=== PATIENT | male | born 1940 | race Caucasian/White ===

== ENCOUNTER → 2018-05-01 | Outpatient (CLI) | payer OTHER, MEDICARE ==
[~2018-05-01] MED LIST: ADVAIR HFA115 MCG/21 INH; ASPIR 8181 MG PO; COLACE100 MG PO; COUMADIN 5 MG TA5 M1 PO; COUMADIN7.5 MG PO; DEMADEX20 MG PO; FISH OIL 1,001000 M2 PO; K-TAB ER20 MEQ PO; LIPITOR10 MG PO; LOPRESSOR25 PO; PACERONE 200 M200 M1 PO; TYLENOL325 MG PO; UNICOMPLEX M TA1 TA1 PO; VITAMIN D1000 UNI1 PO
[2018-05-01 09:43] LABS: CREATININE 0.9 mg/dL (0.7-1.3)
== END ==
LOC: LABMALL 08:58
PROVIDERS: Internal Medicine Cardiovascular Disease
DX: I71.4 Abdominal aortic aneurysm, without rupture (principal)

== ENCOUNTER → 2018-09-04 | Outpatient (CLI) | payer OTHER, MEDICARE | LOC: HYPER 06:59 | DX: I87.312 Chronic venous hypertension (idiopathic) with ulcer of left lower extremity (principal); L97.821 Non-pressure chronic ulcer of other part of left lower leg limited to breakdown of skin; E78.00 Pure hypercholesterolemia, unspecified; G47.33 Obstructive sleep apnea (adult) (pediatric); I10 Essential (primary) hypertension; I71.4 Abdominal aortic aneurysm, without rupture; J44.9 Chronic obstructive pulmonary disease, unspecified; M19.90 Unspecified osteoarthritis, unspecified site; F17.200 Nicotine dependence, unspecified, uncomplicated ==

== ENCOUNTER → 2018-09-18 | Outpatient (CLI) | payer OTHER, MEDICARE | LOC: HYPER 07:03 | DX: I87.312 Chronic venous hypertension (idiopathic) with ulcer of left lower extremity (principal); L97.821 Non-pressure chronic ulcer of other part of left lower leg limited to breakdown of skin; E78.00 Pure hypercholesterolemia, unspecified; G47.33 Obstructive sleep apnea (adult) (pediatric); I10 Essential (primary) hypertension; I71.4 Abdominal aortic aneurysm, without rupture; J44.9 Chronic obstructive pulmonary disease, unspecified; M19.90 Unspecified osteoarthritis, unspecified site; F17.200 Nicotine dependence, unspecified, uncomplicated ==

== ENCOUNTER → 2019-08-04 | Outpatient (CLI) | payer OTHER, MEDICARE | LOC: HYPER 06:45 | DX: I87.333 Chronic venous hypertension (idiopathic) with ulcer and inflammation of bilateral lower extremity (principal); L97.811 Non-pressure chronic ulcer of other part of right lower leg limited to breakdown of skin; L97.821 Non-pressure chronic ulcer of other part of left lower leg limited to breakdown of skin; I71.4 Abdominal aortic aneurysm, without rupture; E78.00 Pure hypercholesterolemia, unspecified; M19.90 Unspecified osteoarthritis, unspecified site; E55.9 Vitamin D deficiency, unspecified; G47.30 Sleep apnea, unspecified; R60.0 Localized edema; J44.9 Chronic obstructive pulmonary disease, unspecified; F17.200 Nicotine dependence, unspecified, uncomplicated ==

== ENCOUNTER → 2019-08-11 | Outpatient (CLI) | payer OTHER, MEDICARE | LOC: HYPER 07:15 | DX: I87.331 Chronic venous hypertension (idiopathic) with ulcer and inflammation of right lower extremity (principal); L97.811 Non-pressure chronic ulcer of other part of right lower leg limited to breakdown of skin; I10 Essential (primary) hypertension; I71.4 Abdominal aortic aneurysm, without rupture; I87.323 Chronic venous hypertension (idiopathic) with inflammation of bilateral lower extremity; E78.00 Pure hypercholesterolemia, unspecified; E55.9 Vitamin D deficiency, unspecified; K21.9 Gastro-esophageal reflux disease without esophagitis; M19.90 Unspecified osteoarthritis, unspecified site; G47.30 Sleep apnea, unspecified; R60.0 Localized edema; J44.9 Chronic obstructive pulmonary disease, unspecified; F17.200 Nicotine dependence, unspecified, uncomplicated ==

== ENCOUNTER → 2019-08-18 | Outpatient (CLI) | payer OTHER, MEDICARE | LOC: HYPER 06:34 | DX: I87.333 Chronic venous hypertension (idiopathic) with ulcer and inflammation of bilateral lower extremity (principal); L97.821 Non-pressure chronic ulcer of other part of left lower leg limited to breakdown of skin; L97.811 Non-pressure chronic ulcer of other part of right lower leg limited to breakdown of skin; E78.00 Pure hypercholesterolemia, unspecified; R60.0 Localized edema; I71.4 Abdominal aortic aneurysm, without rupture; J44.9 Chronic obstructive pulmonary disease, unspecified; M19.90 Unspecified osteoarthritis, unspecified site; G47.33 Obstructive sleep apnea (adult) (pediatric); F17.200 Nicotine dependence, unspecified, uncomplicated ==

== ENCOUNTER → 2019-09-01 | Outpatient (CLI) | payer OTHER, MEDICARE | LOC: HYPER 15:26 | DX: I87.331 Chronic venous hypertension (idiopathic) with ulcer and inflammation of right lower extremity (principal); L97.811 Non-pressure chronic ulcer of other part of right lower leg limited to breakdown of skin; I71.4 Abdominal aortic aneurysm, without rupture; L84 Corns and callosities; I10 Essential (primary) hypertension; E78.00 Pure hypercholesterolemia, unspecified; K21.9 Gastro-esophageal reflux disease without esophagitis; M19.90 Unspecified osteoarthritis, unspecified site; E55.9 Vitamin D deficiency, unspecified; G47.33 Obstructive sleep apnea (adult) (pediatric); R60.0 Localized edema; J44.9 Chronic obstructive pulmonary disease, unspecified; F17.200 Nicotine dependence, unspecified, uncomplicated ==

== ENCOUNTER → 2020-07-19 | Outpatient (CLI) | payer OTHER, MEDICARE | LOC: SJCVCIMAG 08:21 | PROVIDERS: ATTEND Internal Medicine Cardiovascular Disease | DX: I71.4 Abdominal aortic aneurysm, without rupture (principal); I45.2 Bifascicular block; I44.0 Atrioventricular block, first degree; R94.31 Abnormal electrocardiogram [ECG] [EKG]; I11.9 Hypertensive heart disease without heart failure; E78.00 Pure hypercholesterolemia, unspecified; I87.2 Venous insufficiency (chronic) (peripheral); J44.9 Chronic obstructive pulmonary disease, unspecified; M19.90 Unspecified osteoarthritis, unspecified site; F17.210 Nicotine dependence, cigarettes, uncomplicated; Z98.890 Other specified postprocedural states; Z95.3 Presence of xenogenic heart valve; Z95.1 Presence of aortocoronary bypass graft; Z79.899 Other long term (current) drug therapy ==

== ENCOUNTER → 2021-02-16 | Outpatient (CLI) | payer OTHER, MEDICARE | LOC: SJCVCIMAG 08:57 | PROVIDERS: ATTEND Internal Medicine Cardiovascular Disease | DX: I07.1 Rheumatic tricuspid insufficiency (principal); R94.31 Abnormal electrocardiogram [ECG] [EKG]; I45.2 Bifascicular block; I49.49 Other premature depolarization; E78.00 Pure hypercholesterolemia, unspecified; I87.2 Venous insufficiency (chronic) (peripheral); I10 Essential (primary) hypertension; J44.9 Chronic obstructive pulmonary disease, unspecified; I27.20 Pulmonary hypertension, unspecified; M19.90 Unspecified osteoarthritis, unspecified site; E55.9 Vitamin D deficiency, unspecified; F17.210 Nicotine dependence, cigarettes, uncomplicated; Z95.3 Presence of xenogenic heart valve; Z95.0 Presence of cardiac pacemaker; Z95.1 Presence of aortocoronary bypass graft; Z98.890 Other specified postprocedural states; Z79.82 Long term (current) use of aspirin; Z79.899 Other long term (current) drug therapy ==

== ENCOUNTER 2021-05-01 06:18 | Inpatient (IN) | payer OTHER, MEDICARE ==
[~2021-05-01] VITALS: Ht 175.3 cm; Wt 131.1 kg
[2021-05-01] VITALS (69 sets, daily range): BP systolic 61–183; BP diastolic 15–145
--- NOTE | ~2021-05-01 | EMS ---
[address] [address] EMS Patient Care Report Name: FRANCISCO MORALES Room #: REG GEO Cabral#: [id number] Admission: 05/01/21 Attend Phys: Discharge: Date of : 41 Report #: [id number] THIS REPORT FOR: //name// Report Transmitted: 05/01/2021 06:33 EMS Care Summary [place], [place]/[facility] Incident [phone] @ 05/01/2021 05:48 Incident Location [address] [place] [address] Patient FRANCISCO MORALES Male, 80 Years 1940 Patient Address [address] [place] [address] Patient History Diabetes, Patient Allergies No known allergies, Patient Medications Unknown, Chief Complaint BRADYCARDIC Disposition Transported Lights/[place] Dispatch Reason Falls Transported To [facility] Narrative RESPONDED TO LIFT ASSIST WITH P28 ON SCENE. UPON ARRIVAL P28 CREW REPORT PT FELL AND IS VERY WEAK. PT IS SITTING UP IN COMPUTER CHAIR ALERT AND ORIENTED BUT APPEARS VERY PALE. EMS WITNESSED PT PASS OUT AND APPEAR TO HAVE MOMENTARY SEIZURE LIKE ACTIVITY BUT IMMIEDIATELY CAME BACK TO NORMAL MENTAL STATUS AFTER [address] [address] EMS Patient Care Report Name: FRANCISCO MORALES Room #: REG GEO Cabral#: [id number] Admission: 05/01/21 Attend Phys: Discharge: Date of : 41 Report #: [id number] ABOUT 10 SECONDS. FAMILY DENY ANY HX OF SEIZURES. PT VITALS OBTAINED AND RADIAL PULSE IS NOTED TO BE WEAK. PT VITALS, 3 LEAD AND IV OBTAINED. IV FLUIDS RUN FOR HYPOTENSION AND PT HEART RATE WAS VERY LOW. PT WAS PACED SUCCESSFULLY UNTIL HIS HEART RATE REACHED 90 AND THE PACER NO LONGER PACED. 12 LEAD WAS NOT OBTAINED DUE TO URGENCY TO PACE PT. PT TRANSPORTED EMERGENCY TO [facility] 2 RIDERS. PT TEAM LIFTED TO BED AND HANDRAILS UP. REPORT GIVEN TO NURSE. Initial Vitals @06:13P: 70, @06:23P: 90, @06:17P: 97,R: 16,BP: 93/60,SpO2: 99, @06:16SpO2: 99, @06:12P: 24, @06:10P: 41,R: 18,BP: 79/41,Pain: 0/10,SpO2: 96, @06:10P: 42,R: 20,GCS: 15,Glucose: 156,SpO2: 88, Assessments @06:01MENTAL:Time Oriented,Person Oriented,Event Oriented,Place Oriented,SKIN:Pale,HEENT:Head/Face: No Abnormalities,Neck/Airway: No Abnormalities,LUNG SOUNDS:ABDOMEN:PELVIS//GI:No Abnormalities,EXTREMITIES:Left Arm: Weakness,Right Arm: Weakness,Right Leg: Weakness,Left Leg: Weakness,PULSE:Radial: 1+ Thready,NEURO:Other,Seizures,@06:10MENTAL:Place Oriented,Person Oriented,Time Oriented,Event Oriented,SKIN:Pale,HEENT:Head/Face: No Abnormalities,Neck/Airway: No Abnormalities,LUNG SOUNDS:General: No Abnormalities,ABDOMEN:General: No Abnormalities,PELVIS//GI:No Abnormalities,EXTREMITIES:Right Leg: Weakness,Left Arm: Weakness,Right Arm: Weakness,Left Leg: Weakness,PULSE:NEURO:No Abnormalities, Impression Cardiac arrhythmia/dysrhythmia Procedures @06:12Response: Improved@06:23Response: Unchanged@06:01ALS AssessmentResponse: UnchangedSucceeded@06:05Saline Lock 10cc (18 ga) Site: Antecubital-LeftResponse: UnchangedSucceeded@06:06Normal Saline (.9% NaCl) 100cc (18 ga) Site: Antecubital-LeftResponse: ImprovedSucceeded@06:093-Lead ECGResponse: UnchangedSucceeded@PTAOxygen FlowRate: 15 Device: Non Re-breather Mask (NRB) Response: ImprovedSucceeded Timeline VESSEL BUILDER,Oxygen FlowRate: 15 Device: Non Re-breather Mask (NRB) Response: ImprovedSucceeded, 05:45,Call Received 05:45,Dispatch Notified 05:48,[place] [address] EMS Patient Care Report Name: MORALESFRANCISCO Room #: REG GEO Cabral#: [id number] Admission: 05/01/21 Attend Phys: Discharge: Date of : 41 Report #: [id number] 05:49,En Route 05:57,On Scene 06:01,At Patient 06:01,ALS Assessment,Response: UnchangedSucceeded, 06:05,Saline Lock 10cc 18 ga Site: Antecubital-Left,Response: UnchangedSucceeded, 06:06,Normal Saline (.9% NaCl) 100cc 18 ga Site: Antecubital-Left,Response: ImprovedSucceeded, 06:09,3-Lead ECG,Response: UnchangedSucceeded, 06:10,BP: / M,PULSE: 42,RR: 20 R,SPO2: 88 Ox,ETCO2: ,B,PAIN: ,GCS: 15, 06:10,BP: 79/41 M,PULSE: 41,RR: 18 R,SPO2: 96 Ox,ETCO2: ,BG: ,PAIN: 0,GCS: , 06:12,Response: Improved 06:12,BP: / M,PULSE: 24,RR: R,SPO2: Ox,ETCO2: ,BG: ,PAIN: ,GCS: , 06:12,Depart Scene 06:13,BP: / M,PULSE: 70,RR: R,SPO2: Ox,ETCO2: ,BG: ,PAIN: ,GCS: , 06:16,BP: / M,PULSE: ,RR: R,SPO2: 99 Ox,ETCO2: ,BG: ,PAIN: ,GCS: , 06:17,At Destination 06:17,BP: 93/60 M,PULSE: 97,RR: 16 R,SPO2: 99 Ox,ETCO2: ,BG: ,PAIN: ,GCS: , 06:23,Response: Unchanged 06:23,BP: / M,PULSE: 90,RR: R,SPO2: Ox,ETCO2: ,BG: ,PAIN: ,GCS: , 06:36,Call Closed Disclaimer v1.1 Copyright 2020 [email or web address] This EMS Care Summary contains data elements from the applicable legal record (which may be displayed differently). It is designed to provide pertinent information for the following purposes: continuity of care, clinical quality, and state data reporting. The complete legal record is available to ED staff and administrators of the receiving hospital in [employer]'s Patient Tracker. All data is provided "as is."
[~2021-05-01 06:18] MED LIST changes: -LOPRESSOR25 PO; +METOPROLOL TART25 MG PO
[2021-05-01 06:40] LABS: ABSOLUTE NEUTROPHILS 8.7 thou/uL (1.4-8.2); BASOPHILS 0.7 % (0.0-2.0); EOSINOPHILS 0.5 % (0.0-3.0); HEMATOCRIT 28.5 % (42.0-52.0); HEMOGLOBIN 9.3 gm/dL (14.0-18.0); LYMPHOCYTES 8.2 % (24.0-44.0); MCHC 32.5 g/dL (28.0-37.0); MCV 95.2 fL (80.0-100.0); MONOCYTES 6.5 % (1.0-8.0); PLATELET COUNT 194 thou/uL (150-400); POLYS 84.1 % (36.0-66.0); RBC 2.99 mil/uL (4.50-6.00); WBC 10.3 thou/uL (4.0-11.0)
[2021-05-01 06:58] LABS: ANION GAP 19 mmol/L (7-16); BUN 188 mg/dL (7-18); CALCIUM 8.7 mg/dL (8.5-10.1); CHLORIDE 105 mmol/L (98-107); CO2 12 mmol/L (21-32); CREATININE 6.9 mg/dL (0.7-1.3); GLUCOSE 174 mg/dL (74-106); SODIUM 136 mmol/L (136-145); TROPONIN-I <0.06 ng/mL (<0.06)
[2021-05-01 07:00] LABS: POTASSIUM 6.2 mmol/L (3.5-5.1)
--- NOTE | 2021-05-01 07:49 | EKG ---
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 : 1940 Requested By: Annita Bedoya Order Number: [id number] MD: Nadeem Quigley Measurements Intervals Golva Rate: 88 P: -74 NE: 212 QRS: -66 QRSD: 159 T: 65 QT: 413 QTc: 500 Interpretive Statements Sinus rhythm Prolonged NE interval RBBB and LAFB Baseline wander in lead(s) V5 Compared to ECG 09/18/2015 06:56:43 Atrial fibrillation no longer present Electronically Signed On 05-01-2021 7:49:04 CDT by Nadeem Quigley [email or web address] <ELECTRONICALLY SIGNED> By: Nadeem Quigley MD, [facility] 05/01/21 0749 4 4 Nadeem Quigley MD, [facility] /EPI
--- NOTE | 2021-05-01 08:06 | NUR ---
REVIEWED ED PROVIDERS NOTES, AGREE WITH ASSESSMENT. PT NOTES PASSING OUT THIS AM AFTER TRYING TO GET OUT OF BED. PT STATES HE HAD A BAD DREAM PRIOR TO THIS INCIDENT. PT ONLY INJURY TO NOTE IS LEFT GREAT TOE HAS SMALL AREA OF LACERTION, BLEEDING IS CONTROLLED. PT NOTES LEG PAIN STATES IT COMES AND GOES AND FEELS LIKE BAD RESTLESS LEG. PT DENIES CP OR SOB TO THIS RN AT THIS TIME. PT IS ON THE MONITOR AND PLACED ON DEFIB PADS IF PACING AND OR SHOCKS WERE NEEDED. PT SKIN IS PWD, PT IS ALERT AND ORIENTED X4, GCS 15, PT FINN, WILL CLOSELY MONITOR PT
[2021-05-01 09:37] LABS: % SATURATION 76 % (20-39); ALBUMIN 3.6 g/dL (3.4-5.0); IRON 142 ug/dL (65-175); PHOSPHORUS 8.3 mg/dL (2.5-4.9); TIBC 186 ug/dL (250-450)
[2021-05-01 12:12] LABS: URINE BILIRUBIN NEGATIVE (Negative); URINE BLOOD 3+ (Negative); URINE CLARITY CLOUDY; URINE COLOR YELLOW; URINE GLUCOSE-RANDOM* NEGATIVE (Negative); URINE KETONES TRACE (Negative); URINE NITRITE-REFLEX NEGATIVE (Negative); URINE PROTEIN (DIPSTICK) 3+ (Negative); URINE SPECIFIC GRAVITY >= 1.030 (1.005-1.035); URINE UROBILINOGEN 0.2 E.U./dl (0.2-1.0)
[2021-05-01 12:14] LABS: URINE LEUKOCYTES-REFLEX 1+ (Negative)
--- NOTE | 2021-05-01 12:24 | 2DMMODE ---
[facility] [place] [address] 2 D/M-MODE ECHOCARDIOGRAM Name: FRANCISCO MORALES Room #: 241-P ADM IN M.R.#: [id number] Admission: 05/01/21 Attend Phys: Jackson Christian MD Discharge: Date of : 41 Report #: [id number] THIS REPORT FOR: cc: Nicolas Brooks MD, Eric K. MD Santiago, Patrick MD [facility] ~ APPROVED REPORT Study performed: 05/01/2021 11:01:21 EXAM: Comprehensive 2D, Doppler, and color-flow Echocardiogram Patient Location: ICU Room #: 241 Status: routine BSA: 2.51 HR: 94 bpm BP: 98/44 mmHg Other Information Study Quality: Technically Difficult Technically limited study due to body habitus, inability to position patient. Indications Aortic Valve Disease Arrhythmia Hypertension/HDD 2D Dimensions LVOT Diam: 22.49 (18-24mm) IVC: 20.00 mm Aortic Valve AoV Peak Simone.: 3.31 m/s AO Peak Gr.: 43.82 mmHg LVOT Max P.36 mmHg AO Mean Gr.: 27.14 mmHg LVOT Mean P.26 mmHg AO V2 Mean: 2.45 m/s LVOT Max V: 1.59 m/s AO V2 VTI: 63.27 cm LVOT Mean V: 1.16 m/s UMA (VTI): 2.11 cm2 LVOT V1 VTI: 33.62 cm UMA Vmax: 1.90 cm2 SV (LVOT): 133.48 mL Tricuspid Valve TR Peak Simone.: 2.74 m/s [facility] [address] [place] [address] 2 D/M-MODE ECHOCARDIOGRAM Name: FRANCISCO MORALES Room #: 241-P [facility] IN [facility].#: [id number] Admission: 05/01/21 Attend Phys: Teresa Cooley Discharge: Date of : 41 Report #: [id number] TR Peak Gr.: 29.94 mmHg PA Pressure: 40.00 mmHg Left Ventricle The left ventricle is normal size. There is normal LV segmental wall motion. There is normal left ventricular wall thickness. The left ventricular systolic function is normal. The left ventricular ejection fraction is within the normal range. LVEF is 60-65%. This study is not technically sufficient to allow evaluation of the LV diastolic function. Right Ventricle The right ventricle is normal size. The right ventricular systolic function is normal. Atria Left atrium is at the upper limits of normal. Right atrium is at the upper limits of normal. Aortic Valve #25 Klein bioprosthetic aortic valve is present. No aortic regurgitation is present. There is no aortic valvular stenosis. Mitral Valve The mitral valve is normal in structure. Trace mitral regurgitation. No evidence of mitral valve stenosis. Tricuspid Valve The tricuspid valve is normal in structure. There is mild tricuspid regurgitation. Estimated PAP 40 mmHg. There is mild-moderate pulmonary hypertension. Pulmonic Valve The pulmonary valve is normal in structure. There is no pulmonic valvular regurgitation. Great Vessels The aortic root is normal in size. IVC is dilated and collapses <50% with inspiration. Pericardium There is no pericardial effusion. <Conclusion> Technically difficult study [facility] [address] [place] [address] 2 D/M-MODE ECHOCARDIOGRAM Name: FRANCISCO MORALES Room #: 241-P [facility] [place] [facility].#: [id number] Admission: 05/01/21 Attend Phys: Teresa Cooley Discharge: Date of : 42 Report #: [id number] Normal left ventricular size/wall thickness Hyperdynamic systolic function ejection fraction 65% Normal right ventricular size Atrial size upper limits of normal Color-flow Doppler study was performed of the aortic/mitral/tricuspid/pulmonary valve Normal aortic/mitral valve structure and function Mild tricuspid valve insufficiency Estimated PAP 40 mmHg. no pericardial effusion. The aortic root is normal in size. <ELECTRONICALLY SIGNED> By: Devan Salazar MD, [facility] 05/01/21 1224 1224 1224 Devan Salazar MD, FACC /INF
[2021-05-01 12:25] LABS: SQUAMOUS 4-10 Moderate /LPF (0-3); URINE RBC >20 Many /HPF (NONE SEEN)
[2021-05-01 12:26] LABS: AMORPHOUS URATES Moderate /LPF (None Seen); BACTERIA-REFLEX 1-9 Few /HPF (None Seen); CASTS None Seen /LPF (None Seen); URINE WBC-REFLEX 6-15 Few /HPF (0-5)
[2021-05-01 12:30] LABS: ALBUMIN 3.6 g/dL (3.4-5.0); DIRECT BILIRUBIN < 0.1 mg/dL (<0.1-0.2); LIPASE 93 U/L (73-393); SGOT 19 U/L (15-37); SGPT 29 U/L (30-65); TOTAL BILIRUBIN 0.3 mg/dL (0.2-1.0); TOTAL PROTEIN 6.7 g/dL (6.4-8.2)
[2021-05-01 13:43] LABS: ALBUMIN 3.7 g/dL (3.4-5.0); CALCIUM 8.7 mg/dL (8.5-10.1); CREATININE 6.5 mg/dL (0.7-1.3); PHOSPHORUS 7.6 mg/dL (2.6-4.7)
[2021-05-01 13:46] LABS: POTASSIUM 6.6 mmol/L (3.5-5.1)
[2021-05-01] MEDS ORDERED: HYDROXYZINE HCL25 M2 PO (14:18)
[2021-05-01] MEDS ORDERED: SYMBICORT160 MCG/4. INH (14:22)
[2021-05-01] MEDS ORDERED: NORVASC5 MG PO (14:29)
[2021-05-01] MEDS ORDERED: FUROSEMIDE 40 M40 MG PO (14:29)
[2021-05-01] MEDS ORDERED: SPIRIVA18 MCG INH (14:30)
[2021-05-01] MEDS ORDERED: OMEPRAZOLE 20 M20 M1 PO (14:30)
[2021-05-01] MEDS ORDERED: LISINOPRIL10 MG PO (14:31)
--- NOTE | 2021-05-01 17:28 | NUR ---
VAT CONSULTED FOR CVAD. DISCUSSED BENEFITS AND RISK WITH PT, VERBALIZED UNDERSTANDING. RIJ WAS WIDELY PATENT WITH USG. 6FR 25CM TL POWER JACC INSERTED TO 8CM EXTERNAL. PT TOLERATED WELL. STAT CXR ORDERED
--- NOTE | 2021-05-01 17:48 | NUR ---
PATIENT ADMITTED TO ICU AT 0845. PATIENT 2LNC. ORIENTED. PATIENT FELL DOWN UPON SYNCOPAL EPISODE TODAY. HR IN THE 20'S WITH EMS ON ARRIVAL. HYPERKALEMIA. AT 1330 PATIENT BECAME BRADYCARDIC. HR IN 20'S. CARDIOLOGY RENAL AND HOSPITALIST NOTIFIED. DOPAMINE GTT INITIATED. FAMILY TO VISIT PATIENT TODAY. CENTRAL LINE PLACED FOR CVP MONITORING. PATIENT HYPOTENISVE THORUGHOUT THE DAY. GIVING FLUID. A TOTAL OF 4.5L DURING THIS SHIFT. CONTINUING TO MONITOR POTASSIUM. SEE MAR FOR MEDICATIONS GIVEN TODAY.
[2021-05-01 18:23] LABS: ALBUMIN 3.4 g/dL (3.4-5.0); CALCIUM 8.6 mg/dL (8.5-10.1); CREATININE 5.6 mg/dL (0.7-1.3); PHOSPHORUS 6.7 mg/dL (2.6-4.7); POTASSIUM 5.9 mmol/L (3.5-5.1)
--- NOTE | 2021-05-01 18:43 | NUR ---
CXR CONFIRMED PLACEMENT, IJ RELEASED FOR IMMEDIATE USE PER PROTOCOL TO DANNY KEN
[2021-05-02] VITALS (32 sets, daily range): BP systolic 72–112; BP diastolic 23–56
[2021-05-02 04:35] LABS: ABSOLUTE NEUTROPHILS 9.2 thou/uL (1.4-8.2); BASOPHILS 0.4 % (0.0-2.0); EOSINOPHILS 0.2 % (0.0-3.0); HEMATOCRIT 25.5 % (42.0-52.0); HEMOGLOBIN 8.6 gm/dL (14.0-18.0); LYMPHOCYTES 3.8 % (24.0-44.0); MCH 31.3 pg (26.0-34.0); MCHC 33.8 g/dL (28.0-37.0); MCV 92.5 fL (80.0-100.0); MONOCYTES 8.5 % (1.0-8.0); PLATELET COUNT 187 thou/uL (150-400); POLYS 87.1 % (36.0-66.0); RBC 2.75 mil/uL (4.50-6.00); RDW 12.5 % (10.5-14.5); WBC 10.6 thou/uL (4.0-11.0)
[2021-05-02 05:14] LABS: CALCIUM 8.3 mg/dL (8.5-10.1); CREATININE 3.6 mg/dL (0.7-1.3); MAGNESIUM 1.5 mg/dL (1.8-2.4); POTASSIUM 4.6 mmol/L (3.5-5.1)
--- NOTE | 2021-05-02 07:52 | HC ---
[facility] [place] [address] [place] [address] CONSULTATION Name: FRANCISCO MORALES Room #: 241-P [facility] IN M.R.#: [id number] Admission: 05/01/21 Attend Phys: Jackson Christian MD Discharge: Date of : 41 Report #: [id number] THIS REPORT FOR: cc: Nicolas Brooks MD, Eric K. MD Barry,Eugenio Do MD ~ DOC #: [id number] Eugenio Ashley MD DATE OF SERVICE: 05/01/2021 ATTENDING PHYSICIAN: Dr. Christian. REASON FOR EVALUATION: Syncopal episode, recent treatment for right lower extremity inflammatory eruption suspected cellulitis. Recommendation for antibiotic management. HISTORY OF PRESENT ILLNESS: Chart was reviewed. The patient was examined. This is a 80-year-old gentleman with known history of vasculopathy. 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 He did potentially injured his right hand and left foot. He was found to be bradycardic as well as hypotensive. He was referred to the Emergency Department and subsequently admitted and now is in the intensive care unit. He is in moderate distress at this point appears to having some shaking chills, ____ rigors. He is not aware of fevers, although had been taking his temperature. He notes had recently up until 2 weeks ago, been treated with doxycycline, which he states he has a significant adverse drug effects for presumed right lower extremity skin and soft tissue infection with cellulitis. He notes he has generally been ill feeling for last two to three months. He has had anorexia with poor p.o. intake, even preceding this current situation. On evaluation, he was remarkable for renal failure with a creatinine of 6.9, BUN of 188. He notes he had been taking diuretic and not significantly voiding to this point. Potassium was 6.2 as well. Chest x-ray showed no acute abnormality, some old rib fractures. CT abdomen and pelvis showed an aortobiiliac endograft, no acute process. ALLERGIES: Listed as none. CURRENT MEDICATIONS: Include pantoprazole, heparin, insulin lispro sliding scale, acetaminophen, polyethylene glycol, ondansetron. PAST MEDICAL HISTORY: As described above, history of aortic stenosis, bioprosthetic aortic valve replacement, abdominal aortic aneurysm with Endostent, hypertension, hyperlipidemia, obesity, peripheral vascular disease, history of complete heart block. [address] [address] CONSULTATION Name: FRANCISCO MORALES Room #: 241-P [facility] IN M.R.#: [id number] Admission: 05/01/21 Attend Phys: Jackson Christian MD Discharge: Date of : 41 Report #: [id number] SOCIAL HISTORY: Former smoker, fairly regular ethanol, no illicit drug use. FAMILY HISTORY: Noncontributory. REVIEW OF SYSTEMS: As above. PHYSICAL EXAMINATION: GENERAL: He appears chronically ill. He is obese, although undernourished in moderate distress. He is experiencing appears to be shaking chills. He is generally lucid. VITAL SIGNS: Temperature has not been recorded, pulse 93, respirations 18, blood pressure is 89/49. SKIN: Warm, dry, no rashes. HEENT: Normocephalic. Extraocular muscles intact. NECK: Supple. LUNGS: Diminished breath sounds. HEART: Borderline tachycardic, occasional ectopy, does appear to have a systolic murmur. ABDOMEN: Distended, somewhat firm, nontender. EXTREMITIES: Bilateral lower extremities have chronic dermopathy consistent with venous stasis insufficiency and dermatitis. Does appear to have a cellulitic component at this point. Left great toe is tender to palpation. GENITOURINARY AND RECTAL: Deferred. LABORATORY DATA: CT as described above. Chest x-ray was unremarkable. Ankle x-ray without acute process. Electrolytes: Sodium 136, potassium 6 2, chloride 105, bicarbonate 12, anion gap of 19, BUN and creatinine 188 and 6.9, glucose of 174. CBC: White count 10.3, H and H 9.3 and 28.5, platelets of 194. ASSESSMENT AND PLAN: 1. Syncopal episode, suspect underlying cardiac dysrhythmias as well as perhaps orthostatic component. 2. Severe renal failure, difficult to ascertain has underlying vasculopathy. 3. Acute on chronic illness may have underlying occult process. 4. Aortic valve replacement with bioprosthesis due to aortic stenosis. 5. Abdominal aortic aneurysm repair with endograft. 6. Possible ETOHism. 7. Malnutrition. We will check blood cultures. Agree with echo to exclude endovascular issues. I think it is reasonable to start empiric therapy, would be concerned again about an occult process including infection. Imaging was otherwise unrevealing for pneumonitis or intraabdominal process with a lack of localized inflammation. We will do additional diagnostic testing. We would also be concerned about [facility] [address] [place] [address] CONSULTATION Name: FRANCISCO MORALES Room #: 241-P ADM IN M.R.#: [id number] Admission: 05/01/21 Attend Phys: Jackson Christian MD Discharge: Date of : 41 Report #: [id number] withdrawal perhaps at risk. It is difficult to ascertain his level of dependence. We will check x-ray of his foot to exclude a fracture there. We will add incentive spirometry. Eugenio Ashley MD JWB/ALL <ELECTRONICALLY SIGNED> By: Eugenio Ashley MD 05/02/21 0752 0917 33 Eugenio Ashley MD /nt
--- NOTE | 2021-05-02 11:40 | NUR ---
Chart review. discussed during los and am rounds. Possible will need some type rehab at dc, 5N?. Unable to visit with fairha rt on cpap resting with eyes closed. will continue following as needed for dc needs.
--- NOTE | 2021-05-02 19:22 | NUR ---
patient progressing towards dismissal goals. improving labs. worked with pt and ot. patient emesis x2 today. dopamine titrated down to 5mcg.
[2021-05-03] VITALS (55 sets, daily range): BP systolic 77–158; BP diastolic 35–69
[2021-05-03 04:25] LABS: ALBUMIN 2.5 g/dL (3.4-5.0); CALCIUM 7.1 mg/dL (8.5-10.1); PHOSPHORUS 2.7 mg/dL (2.6-4.7)
[2021-05-03 04:32] LABS: CREATININE 1.3 mg/dL (0.7-1.3)
--- NOTE | 2021-05-03 06:03 | NUR ---
This RN discussed morning labs with Judy Miller NP. Orders received. No big overnight events. Patient progressing towards goals.
--- NOTE | 2021-05-03 07:36 | HC ---
[facility] [place] [place] [address] CONSULTATION Name: FRANCISCO MORALES Room #: 241-P [facility] IN M.R.#: [id number] Admission: 05/01/21 Attend Phys: Jackson Christian MD Discharge: Date of : 41 Report #: [id number] THIS REPORT FOR: cc: Nicolas Brooks MD, Eric K. MD Al-Absi,Mimi Kulkarni MD ~ DOC #: [id number] Mimi Daigle MD DATE OF SERVICE: 05/01/2021 REASON FOR CONSULTATION: Acute kidney injury and hyperkalemia. REASON FOR PRESENTATION: Syncopal episode. HISTORY OF PRESENT ILLNESS: This is a 80-year-old who was brought to the emergency room yesterday after a syncopal event. He was found to have hyperkalemia, acute kidney injury mandating a nephrology consultation. The patient has been feeling weak in the last couple of weeks. He has been taking ibuprofen. He also reported that he has been following the wound care and had doxycycline prescribed for the last week or so. He was extremely hypotensive with a heart rate in the 40s when he presented to the emergency room. He does not recall any change in his heart medications. He is known to have significant cardiac history including and not limited to bioprosthetic aortic valve replacement, status post stenting graft of his AAA. No other inciting events could be elicited in his history. The patient was admitted to the intensive care unit and required aggressive measures with IV fluid, aggressive treatment of his hyperkalemia. He feels much better this morning. He was maintained on dopamine when I evaluated him this morning. His potassium is down. His acidosis is improving. Both his BUN and creatinine are improving. PAST MEDICAL HISTORY: 1. Bioprosthetic aortic valve. 2. AAA post-stent graft. 3. Aortic stenosis, post bioprosthetic valve. 4. Hypertension. 5. Hyperlipidemia. 6. Peripheral vascular disease. 7. Remote history of complete heart block. SOCIAL HISTORY: He is a former smoker. No drug or alcohol abuse. FAMILY HISTORY: Hypertension. REVIEW OF SYSTEMS: GENERAL: Significant for weakness and wobbliness. CARDIOVASCULAR: Significant for shortness of breath. [facility] [address] [place] [address] CONSULTATION Name: FRANCISCO MORALES Room #: 241-P [facility] IN .R.#: [id number] Admission: 05/01/21 Attend Phys: Jackson Christian MD Discharge: Date of : 41 Report #: [id number] PULMONARY: Significant for shortness of breath and dyspnea on exertion. GASTROINTESTINAL: Significant for decreased oral intake, some diarrhea. GENITOURINARY: Reduced urine output. MUSCULOSKELETAL: Occasional back pain and muscle cramps. SKIN: Brownish discoloration of the bilateral lower extremity. MEDICATIONS: 1. Atorvastatin. 2. Metoprolol. 3. Amlodipine. 4. Lisinopril. 5. Furosemide. 6. Potassium. PHYSICAL EXAMINATION: GENERAL: Alert, awake, oriented. VITAL SIGNS: Blood pressure is 104/42 maintained on dopamine. HEAD AND NECK: No jugular venous distention. CHEST: No crackles. Decreased air entry bilaterally. CARDIOVASCULAR: No rub. ABDOMEN: Soft, nontender. LOWER EXTREMITIES: Consistent with venous stasis dermatitis. LABORATORY DATA: Laboratory values from today: Hemoglobin is 8.6. Sodium is 142, potassium is 4.6, chloride is 110, carbon dioxide is 16, BUN is down from 188 on arrival to 138, creatinine is down from 6.9-3.6, magnesium is 1.5. Phosphorus is down from 8.3-6.7. ASSESSMENT, IMPRESSION, PLAN: 1. Acute kidney injury. 2. Hypertension. 3. Bradycardia. 4. Venous stasis dermatitis. 5. Life-threatening hyperkalemia. 6. Metabolic acidosis. 7. Aortic stenosis post-aortic valve replacement. 8. No clear reason for his acute kidney injury; however, this seems to be multifactorial due to hypotension. The patient was maintained on numerous blood pressure medications including a calcium channel alma and an angiotensin converting enzyme inhibitors, he was also maintained on potassium supplementation. At this point, the patient's heart rate and blood pressures seem to be much better. His potassium is much better. His BUN and creatinine are trending down. His acidosis is improving. Cultures are being followed and appropriate antibiotics are being adjusted by the primary team and the infectious disease team for a potential urinary tract infection contributing to his current presentation, sepsis. [address] [address] CONSULTATION Name: FRANCISCO MORALES Room #: 241-P [facility] IN M.R.#: [id number] Admission: 05/01/21 Attend Phys: Jackson Christian MD Discharge: Date of : 42 Report #: [id number] 9. Continue with the IV fluid for now. 10. P.r.n. diuresis. 11. I expect him to fully recover; however, we need to obtain his baseline creatinine as we do not have any recent labs on him and I will reach out to his primary care physician. 12. Replace magnesium. 13. Continue to avoid nephrotoxins including the ibuprofen that he is used to take. 14. We will continue to follow. Mimi Daigle MD AIA/NATALY <ELECTRONICALLY SIGNED> By: Mimi Daigle MD 05/03/21 0736 0529 Mimi Daigle MD /yessi
[2021-05-03 15:59] LABS: CALCIUM 8.2 mg/dL (8.5-10.1); CREATININE 1.4 mg/dL (0.7-1.3); POTASSIUM 3.8 mmol/L (3.5-5.1)
--- NOTE | 2021-05-03 16:30 | NUR ---
Pt remains in ICU on dopamine gtt and cpap. He was evaluated by therapy today. 5N acute rehab consult requested. The pt was indep prior to admission and lives with his brother in a multi level home.l His kidney status is improving. He will hopefully be weaned off dopamine and transfer out of the ICU soon. Production Manager attempted to visit with the pt but he is occupied at this time. Will f/u once rehab medicine recommendations rec'd for possible acute rehab or snf stay at mo. Will follow.
--- NOTE | 2021-05-03 17:47 | NUR ---
ASSUMED CARE AT 0700. PATIENT SLOWLY PROGRESSING TOWARDS THE PLAN OF CARE EVIDENCED BY NO LONGER NEEDING DOPAMINE HOWEVER PATIENT NOW REQUIRING LEVOPHED FOR BP SUPPORT. BROTHER AND SISTER OF THE PATIENT BOTH VISITED TODAY.
[2021-05-04] VITALS (32 sets, daily range): BP systolic 102–146; BP diastolic 45–81
--- NOTE | 2021-05-04 02:31 | NUR ---
ASSESSMENT: PT REMAIN ALERT AND ORIENT TIMES THREE. FINN. C/O FEELING CONSTIPATED. HAS NOT HAD A BM SINCE 04/30/21. KUB OF ABD NEGATIVE. ABD DISTENDED AND FIRM. HYPOACTIVE BS PRESENT. LEVO AT 3MCG MAP >65. AFEBRILE. SR PER MONITOR. CPAP ON WITH SATS 92-94% RIGHT IJ INTACT/PATENT. SLOW PROGRESS TOWARDS DC GOALS. WILL CONTINUE TO MONITOR.
[2021-05-04 04:59] LABS: ALBUMIN 2.7 g/dL (3.4-5.0); CALCIUM 8.1 mg/dL (8.5-10.1); CREATININE 1.2 mg/dL (0.7-1.3); PHOSPHORUS 2.9 mg/dL (2.5-4.9); POTASSIUM 3.9 mmol/L (3.5-5.1)
--- NOTE | 2021-05-04 14:00 | NUR ---
ON-GOING ASSESSMENT: CM REVIEWED CHART AND MET WITH PATIENT AT THE BEDSIDE. PT IS NOW ON 2L OF OXYGEN. PT HAS BEEN WORKING WITH PHYSICAL THERAPY. CONSULT WAS PLACED FOR ACUTE REHAB. CM MET WITH PATIENT AT THE BEDSIDE AND DISCUSSED 5N. PT STATES HE IS AGREEABLE IF THEY CAN ACCEPT HIM AND JUST WANTS TO GET BETTER. CM SPOKE WITH [facility]N [facility] WHO REPORTS THEY CAN ACCEPT PATIENT ONCE MEDICALLY STABLE. PLANS TO TRANSFER OUT OF ICU SOON. CM WILL CONTINUE TO FOLLOW TO ASSIST NEEDED.
--- NOTE | 2021-05-04 16:51 | NUR ---
ASSUMED PATIENT CARE AT 0700. LEVO GTT TITRATED OFF AT 0800. PATIENT COMPLAINING OF CONSTIPATION. ORDER FOR SUPPOSITORY PLACED, PATIENT THEN REFUSED. REQUESTS TO HAVE SUPPOSITORY TOMORROW IF NO BM OVERNIGHT. UP TO CHAIR WITH PT AND OT. PATIENT REMAINS IN CHAIR THROUGHOUT DAY. NO LONGER REQUIRING SUPPLEMENTAL OXYGEN. PATIENT'S BROTHER AT BEDSIDE VISITING. VSS. PATIENT PROGRESSING TOWARDS PLAN OF CARE.
[2021-05-05] VITALS (16 sets, daily range): BP systolic 61–147; BP diastolic 37–74
[2021-05-05 05:33] LABS: ALBUMIN 2.5 g/dL (3.4-5.0); CALCIUM 8.1 mg/dL (8.5-10.1); CREATININE 1.1 mg/dL (0.7-1.3); PHOSPHORUS 2.7 mg/dL (2.5-4.9); POTASSIUM 3.6 mmol/L (3.5-5.1)
--- NOTE | 2021-05-05 10:00 | NUR ---
pt very motivated to get better. wants to transfer to rehab and return home. he has some steps at this home. up in chair with use of gait belt and walker with 1-2 assist, well tolerated, repositioning self in chair. SR/BBB, room air, poor appetite, adequate urine output per tejeda. discomfort in L foot, snug socks/footie placed for compression, 1+ edema tender to touch, bruising present, elevated on pillows with chair reclined for comfort.
--- NOTE | 2021-05-05 11:07 | NUR ---
Discussed during los and am rounds. He ready for acute rehab today per hospitalist. CM visited with fariha at bedside, he was up in recliner care. he ready for rehab to get better to go home. Bedside nurse to call report to [phone].
--- NOTE | 2021-05-05 13:30 | NUR ---
brother present for a couple of hours visiting with pt, consumed a bite of every item and consumed all glucerna. continuing to reposition chair forward or reclining for his comfort.
--- NOTE | 2021-05-05 16:55 | NUR ---
previously obtained covid-19 sample, sent to lab. report called to CLAYTON Concepcion on rehab unit at 1550. Fabiana baires'aquiles, well tolerated. at 1655, discharged from hospital. transferred to Rehab Unit #504 per wheelchair. flushed RIJ triple lumen with ns, then blood pulled back from patent line and pressure held x 5 min. applied guaze 4x4 and clear occulsive dressing.
--- NOTE | 2021-05-05 16:55 | NUR ---
transferred to floor with his home cpap machine, cell phone/double bottom driver/cord, glasses, watch and a few clothing items in secured plastic bag.
[2021-05-05 20:46] LABS: HEMATOCRIT 24.9 % (42.0-52.0); HEMOGLOBIN 8.3 gm/dL (14.0-18.0); MCH 30.9 pg (26.0-34.0); MCHC 33.2 g/dL (28.0-37.0); RBC 2.68 mil/uL (4.50-6.00); WBC 9.9 thou/uL (4.0-11.0)
== END 2021-05-05 17:38 | DRG 682 ==
LOC: ER 06:18 → ICU 07:47 → EROBS 07:47 → ICU 08:25
PROVIDERS: Hospitalist; Nurse Practitioner; Specialist; Student in an Organized Health Care Education/Training Program; ADMIT Hospitalist; ATTEND Hospitalist
PROC: 5A09357 Assistance with Respiratory Ventilation, Less than 24 Consecutive Hours, Continuous Positive Airway Pressure (ICD-10-PCS; principal; 2021-05-01)
PROC: 02HV33Z Insertion of Infusion Device into Superior Vena Cava, Percutaneous Approach (ICD-10-PCS; principal; 2021-05-01)
PROC: 5A09357 Assistance with Respiratory Ventilation, Less than 24 Consecutive Hours, Continuous Positive Airway Pressure (ICD-10-PCS; 2021-05-02)
PROC: 5A09357 Assistance with Respiratory Ventilation, Less than 24 Consecutive Hours, Continuous Positive Airway Pressure (ICD-10-PCS; 2021-05-03)
PROC: 5A09357 Assistance with Respiratory Ventilation, Less than 24 Consecutive Hours, Continuous Positive Airway Pressure (ICD-10-PCS; 2021-05-04)
DX: N17.0 Acute kidney failure with tubular necrosis (principal); J96.01 Acute respiratory failure with hypoxia; R65.11 Systemic inflammatory response syndrome (SIRS) of non-infectious origin with acute organ dysfunction; E44.0 Moderate protein-calorie malnutrition; N39.0 Urinary tract infection, site not specified; Z68.41 Body mass index [BMI] 40.0-44.9, adult; E87.2 Acidosis; E87.0 Hyperosmolality and hypernatremia; E87.5 Hyperkalemia; I95.9 Hypotension, unspecified; I10 Essential (primary) hypertension; E78.5 Hyperlipidemia, unspecified; I73.9 Peripheral vascular disease, unspecified; I71.4 Abdominal aortic aneurysm, without rupture; I87.2 Venous insufficiency (chronic) (peripheral); I35.0 Nonrheumatic aortic (valve) stenosis; I25.10 Atherosclerotic heart disease of native coronary artery without angina pectoris; R53.81 Other malaise; U07.0 Vaping-related disorder; E66.01 Morbid (severe) obesity due to excess calories; I65.23 Occlusion and stenosis of bilateral carotid arteries; E83.42 Hypomagnesemia; E86.1 Hypovolemia; D64.89 Other specified anemias; E87.6 Hypokalemia; J44.9 Chronic obstructive pulmonary disease, unspecified; K21.9 Gastro-esophageal reflux disease without esophagitis; Z20.822 Contact with and (suspected) exposure to COVID-19; Z88.8 Allergy status to other drugs, medicaments and biological substances; Z95.2 Presence of prosthetic heart valve; Z87.891 Personal history of nicotine dependence; Z79.899 Other long term (current) drug therapy
CPT/HCPCS: 10078; 50455; 65040

== ENCOUNTER 2021-05-05 14:04 | Inpatient (IN) | payer OTHER, MEDICARE ==
[~2021-05-05] VITALS: Ht 152.4 cm; Wt 136.1 kg
--- NOTE | 2021-05-05 09:45 | NUR ---
Chart review. CM spoke with him at bedside about going to acute rehab 05/05. he was excited, ready for rehab, so i can get home. education on team meeting and dcp on 5N. Pt independent prior to hospital. manage own medication, 2 steps to enter and 7 inside home. drives vehicle. no hh or rehab in the past. PCP dr al. will cont following as needed for dc needs.
[~2021-05-05 14:04] MED LIST changes: +FUROSEMIDE 40 M40 MG PO; +HYDROXYZINE HCL25 M2 PO; +LISINOPRIL10 MG PO; +NORVASC5 MG PO; +OMEPRAZOLE 20 M20 M1 PO; +SPIRIVA18 MCG INH; +SYMBICORT160 MCG/4. INH
[2021-05-05 17:40] VITALS: BP 156/58
--- NOTE | 2021-05-05 17:57 | NUR ---
ASSUMED CARE OF PT FROM ICU. PT HAS GENERAL WEAKNESS AND IN REHAB FOR STRENGTHENING. PT IS A/OX4, LUNGS CLEAR UPPER MAHMOOD AND DIMINISHED IN LOWER. SKIN INTACT WITH REDNESS TO THE LOWER EXTREMITIES WITH FLAKING SKIN. DISTAL PULSES PRESENT AND STRONG. ASSESSMENTS OTHERWISE UNREMARKABLE. CALL LIGHT AND OTHER NEEDS ARE WITHING REACH. PT IS ABULATORY WITH 1X ASST. & WALKER. ALL OTHER INFORMATION CHARTED. MEDS AND OTHER TX GIVEN NEEDED AND SCHEDULED.
[2021-05-05 20:06] VITALS: BP 117/61
--- NOTE | 2021-05-06 02:46 | NUR ---
assumed care approx 1900 evening 05/05. pt lying in bed with head of bed elevated at change of shift visiting with visitor at bedside. pt alert and oriented x4, appropriate and cooperative. pt denied c/o pain. pt unable to void and order recd for straight cath approx 0100. pt now sleeping soundly, cpap machine on. cathed 600ml. dark yellow urine. bed alarm on and call light in reach. will continue to monitor.
[2021-05-06 05:01] LABS: HEMATOCRIT 24.2 % (42.0-52.0); HEMOGLOBIN 8.1 gm/dL (14.0-18.0); MCH 31.1 pg (26.0-34.0); MCHC 33.4 g/dL (28.0-37.0); MCV 93.2 fL (80.0-100.0); RBC 2.6 mil/uL (4.50-6.00); RDW 12.8 % (10.5-14.5); WBC 10.4 thou/uL (4.0-11.0)
[2021-05-06 05:22] LABS: CALCIUM 8.1 mg/dL (8.5-10.1); CREATININE 0.9 mg/dL (0.7-1.3); POTASSIUM 3.4 mmol/L (3.5-5.1)
[2021-05-06 08:00] VITALS: BP 126/60
--- NOTE | 2021-05-06 15:50 | NUR ---
ASSUMED CARE OF PT. AT 0715. PT. A&OX4. PT. WILLINGLY WORKING WITH O.T. AT THIS TIME. PT. UP WITH SBA, GB AND WALKER. PT. TOLERATING HEART HEALTHY DIET. PT. USES CALL LIGHT APPROPRIATELY. BED ALARM AND CHAIR ALARM NOTED. SLOW BUT STEADY GAIT NOTED WHEN AMBULATING. PT. HAS NOT VOIDED, BVI SHOWED 461 MLS, STRAIGHT CATHED PT AND 800 MLS OUT. PT STATES HE FEELS BETTER AFTER STRAIGHT CATH PERFORMED. PT TOOK FIRST DOSE OF FLOMAX APPROX 1230. WILL CONTINUE TO MONITOR.
[2021-05-06 19:07] VITALS: BP 134/80
--- NOTE | 2021-05-07 01:26 | NUR ---
assumed care approx 1900 evening 05/06. pt lying in bed with head of bed up ready to put cpap on and sleep. pt went to sleep early in evening. Jung to dd with yellow urine to bag. pt took hs med with water tolerating well. pt appears to be sleeping soundly. bed alarm on and call light in reach. will continue to monitor.
[2021-05-07 10:21] VITALS: BP 108/56
--- NOTE | 2021-05-07 16:20 | NUR ---
ASSUMED C/O PT AT 0700. PT A&OX4. PT. UP TO BR WITH GAIT BELT WALKER, TAKES EXTRA TIME. PT AZUL DRAINING CLEAR YELLOW URINE. PT. TOLERATING CARB CONTROL DIET. PT WILLINGLY WORKS WITH THERAPIES. PT. USES CALL LIGHT APPROPRIATELY, BED ALARM AND CHAIR ALARM IN USE. WILL CONTINUE TO MONITOR.
--- NOTE | 2021-05-07 16:34 | NUR ---
LATE ENTRY, 16FR. AZUL CATHETER PLACED AT 1845 ON 05/06 BY THIS NURSE. STERILE PROCEDURE FOLLOWED.
[2021-05-07 18:52] VITALS: BP 113/54
--- NOTE | 2021-05-07 23:18 | NUR ---
PT ALERT AND ORIENTED X 4. UP IN RECLINER ALL EVENING. TRANSFERRED TO BED AT WITH ASSIST X 2. AZUL PATENT DRAINING CLEAR YELLOW URINE. CPAP ON DURING THE NIGHT. PT DENIES PAIN OR DISCOMFORT. BED ALARM ON FOR SAFETY. PT APPEARS TO BE SLEEPING ON HOURLY ROUNDS.
[2021-05-08 07:15] VITALS: BP 117/64
--- NOTE | 2021-05-08 13:58 | NUR ---
WOUND CONSULT; A STABLE SCAB WAS IDENTIFIED TO THE LEFT GREAT TOE. NO ERYTHEMA OR S/S OF INFECTION. THE BUTTOCKS/SACRUM IS PINK ONLY AND BLEACHABLE. RECOMMENDATIONS; -ZGUARD TO BUTTOCKS/SACRUM. -LEFT TOE PAINT WITH BETADINE, M/W/F PRN. DISCUSSED W/ RN
--- NOTE | 2021-05-08 18:05 | NUR ---
ASSUMED PATIENT CARE AT 0700. A/O X4. UP WITH ASSISTED WALKING. DENIES PAIN. SLOWLY TOWARDS POC GOALS.
[2021-05-08 19:01] VITALS: BP 121/74
--- NOTE | 2021-05-08 23:15 | NUR ---
PT ALERT AND ORIENTED X 4. AZUL PATENT DRAINING CLEAR YELLOW URINE. CPAP ON DURING THE NIGHT. PT DENIES PAIN OR DISCOMFORT. BED ALARM ON FOR SAFETY. PT APPEARS TO BE SLEEPING ON HOURLY ROUNDS.
[2021-05-09 05:35] LABS: ABSOLUTE NEUTROPHILS 7.3 thou/uL (1.4-8.2); BASOPHILS 0.5 % (0.0-2.0); EOSINOPHILS 2.7 % (0.0-3.0); HEMATOCRIT 23.9 % (42.0-52.0); HEMOGLOBIN 8.1 gm/dL (14.0-18.0); LYMPHOCYTES 13.1 % (24.0-44.0); MCHC 33.8 g/dL (28.0-37.0); MCV 91.8 fL (80.0-100.0); MONOCYTES 11.6 % (1.0-8.0); PLATELET COUNT 294 thou/uL (150-400); POLYS 72.1 % (36.0-66.0); RDW 12.9 % (10.5-14.5); WBC 10.2 thou/uL (4.0-11.0)
[2021-05-09 05:57] LABS: CALCIUM 8.1 mg/dL (8.5-10.1); CREATININE 0.9 mg/dL (0.7-1.3); MAGNESIUM 1.8 mg/dL (1.8-2.4); POTASSIUM 3.5 mmol/L (3.5-5.1)
[2021-05-09 07:15] VITALS: BP 130/52
--- NOTE | 2021-05-09 11:56 | NUR ---
Nutrition: pt admitted to rehab unit with medical complexity, general debility. Familiar with pt from acute care admit. Appetite has been down for a few weeks. no weight loss. BMI 58, extreme class 3 obesity. Pt has been receiving glucerna which he drinks 100% of. PO intake on average past week is 40% of meals, highly variable. Dislikes the ground diet. ST trialing pt on upgrades today. Pt has reported jaw tiring with chewing, has dentures. Reviewed meals ordering and food preferences obtained. Discussed nutrition needs. Pt reports he will push himself to eat better. D/C Carb controlled diet restriction, no hx of DM and suboptimal intake. Low nutrition risk with interventions in place.
--- NOTE | 2021-05-09 12:50 | NUR ---
team meeting. dizzy with therapy today, low bp. bilat feet swollen. 40ft with fww. diet mech soft solid with thin liquid. will dc home with ileana. dc 05/17 hh ( pt, ot, st, nursing, ), will need FWW.
[2021-05-09 19:20] VITALS: BP 110/55
--- NOTE | 2021-05-10 01:46 | NUR ---
assumed care approx 1900 evening 05/09. pt sitting up in chair at change of shift and assisted into bed at hs. tejeda to dd with yellow drainage to bag. pt denied complaints before falling asleep. pt appears to be sleeping soundly. bed alarm on and call light in reach. will continue to monitor.
--- NOTE | 2021-05-10 08:40 | NUR ---
PT SITTING ON SIDE OF BED EATING BREAKFAST. PT STATED HE WAS UNCOMFORTABLE IN THE LARGE CHAIR. BROUGHT OVER RANDALL-CHAIR AND PLACED CHAIR ALARM AND COMFORTABLE PAD IN RANDALL-CHAIR. PT LUNGS CLEAR. PT USES CPAP AT HS. PT HAS AZUL TO DD WITH CLEAR YELLOW URINE. PT HAS SWELLING TO LE BILAT. PT TOOK MEDS WHOLE WITH WATER.
[2021-05-10 08:54] VITALS: BP 111/59
--- NOTE | 2021-05-10 10:30 | NUR ---
ASSISTED PT TO BATHROOM X1 ASSIST. PT STATED HE NEEDED TO HAVE A BM. PT HAD SMALL STOOL X2. PT GOING TO ST THEN GETTING A CT TODAY.
--- NOTE | 2021-05-10 11:27 | NUR ---
PT WANTS TO GO BACK TO BED. ASSURED PT AFTER LUNCH HE MAY REST AND ITS BETTER TO SIT UP TO EAT.
--- NOTE | 2021-05-10 12:29 | NUR ---
ADM TYLENOL 325MG 2 TABS PO FOR PAIN TO LEFT HIP OF 6 ON 1-10 SCALE. ADM COLACE 100MG PO AND SENNACOT ONE TAB PO FOR CONSTIPATION. PT STATED HE IS HAVEING LOOSE STOOLS AND STILL FEELS LIKE HE NEEDS TO GO.
--- NOTE | 2021-05-10 12:43 | H ---
[facility] [place] [address] HISTORY AND PHYSICAL Name: FRANCISCO MORALES Room #: 504-1 ADM IN M.R.#: [id number] Admission: 05/05/21 Attend Phys: Jamey Shultz MD Discharge: Date of : 42 Report #: [id number] THIS REPORT FOR: cc: Nicolas Brooks MD, Eric K. MD Smithson, David G. MD ~ DOC #: [id number] Jamey Shultz MD DATE OF SERVICE: 05/06/2021 HISTORY OF PRESENT ILLNESS: The patient is a 80-year-old white male who was originally admitted on 05/01/2021 with bradycardia and hypotension. He had a noted syncopal event. He was noted to have low blood pressure, which resolved. He was monitored on dopamine, noted to have shock, hypovolemic, is on pressors. Cardiology was closely involved. He had critical hyperkalemia. He was treated for acute hypoxic respiratory failure. He also had acute renal failure. He was found to have recent lower extremity cellulitis with Infectious Disease involved. He was gradually feeling better, thought to be ready for acute inpatient rehabilitation and has now been admitted for acute rehab. PRIOR MEDICAL HISTORY: Includes coronary artery disease status post aortic valve replacement and bioprosthetic in 2015, AAA status post endograft, hypertension, hyperlipidemia, chronic venous insufficiency, history of COPD. MEDICATIONS: Please see the full medication listing. ALLERGIES: DOXYCYCLINE. SOCIAL HISTORY: He lives in a house with his brother. This is a tri-level home, 2 steps in, 7 inside. His brother is 81 years old, is retired, could be of some assistance. He premorbidly did drive. Could not use assistive devices prior to admission. REVIEW OF SYSTEMS: He did have some left foot discomfort with fall and has some minor skin care areas. X-ray of the left foot was negative. Has some bruising of the left 4th and 5th toes. He denies any current chest pain, shortness of breath or abdominal discomfort. PHYSICAL EXAMINATION: GENERAL: Pleasant 80-year-old obese white male who was seen earlier. VITAL SIGNS: Temperature 36.7, pulse 92, respirations 18, blood pressure 126/60. PSYCHIATRIC: Alert, appropriate. Follows basic commands without difficulty. HEENT: Appeared to be benign. CHEST: Sounded reasonably clear. CARDIAC: Regular rate and rhythm. [facility] [address] [place] [address] HISTORY AND PHYSICAL Name: FRANCISCO MORALES Room #: 504-1 [facility] IN .R.#: [id number] Admission: 05/05/21 Attend Phys: Jamey Shultz MD Discharge: Date of : 42 Report #: [id number] ABDOMEN: Bowel sounds positive, nontender, obese. GENITOURINARY AND RECTAL: Deferred. EXTREMITIES: He has functional range of motion of both upper extremities, strength is grade 4-/5 to 3+/5. DTRs are trace to 1. Lower extremities: He has some venous stasis changes bilaterally. He has ecchymosis base of the left 4th and 5th toes. There is an abrasion over the left large toe. Functionally, he is needing assistance with basic mobility skills. He needs assistance with transfers and has ambulated a short distance with a walker. He was mod assist sit to stand. ASSESSMENT: A 80-year-old male with the following problem list: 1. Medical complexity with generalized debilitation. 2. Recent syncopal episode. 3. Hypovolemic shock. 4. Recent acute hypoxic respiratory failure. 5. Critical hyperkalemia that has resolved. 6. Acute renal insufficiency, possible acute tubular necrosis, resolved. 7. Recent lower extremity cellulitis, improved. 8. Aortic stenosis status post bioprosthetic aortic valve replacement. 9. Hypertension. 10. Hyperlipidemia. 11. Morbid obesity, BMI 44. 12. Chronic obstructive pulmonary disease, uses CPAP. 13. Venous insufficiency. 14. History of vaping. PLAN: The patient has been admitted for acute in-hospital inpatient rehabilitation. Please see the patient's previous and current functional status. As far as risk of complications, he does have the multiple medical comorbidities as noted above. Initial plan of care involves the interdisciplinary acute inpatient patient program. Measurable functional goals would be for the patient to become modified independent with transfers, mobility and ADLs as well as be further evaluated from a cognitive perspective with the goal of having return back to the home setting. Prognosis is reasonably good with estimated length of stay probably at least 10 days after 14 days. Potential barriers would include his multiple medical comorbidities and decreased functional status. The patient meets diagnostic criteria for an acute in-hospital inpatient rehabilitation stay. He meets the medical necessity criteria. We will have the medical consultants continue to follow. He does have the tolerance for therapies and has appropriate discharge goals back to the home setting. Jamey Shultz MD DGS/NEGIN [facility] [address] [place] [address] HISTORY AND PHYSICAL Name: FRANCISCO MORALES Room #: 076-1 ADM IN Teresa.Janelle.#: [id number] Admission: 05/05/21 Attend Phys: Jamey Shultz MD Discharge: Date of : 42 Report #: [id number] <ELECTRONICALLY SIGNED> By: Jamey Shultz MD 05/10/21 1243 1240 1321 Jamey Shultz MD /nt
[2021-05-10 14:00] VITALS: BP 129/39
--- NOTE | 2021-05-10 14:00 | NUR ---
PT WORKING WITH THERAPY AND GOT DIZZY. PT SITTING IN CHAIR AT THIS TIME AND BP TAKEN MANUAL AND MACHINE. MACHINE IS 129/39, AND MANUAL TO RT ARM IS 118/52.
[2021-05-10 14:01] VITALS: BP 118/52
--- NOTE | 2021-05-10 15:11 | NUR ---
Dc date 05/17, fariha and family ok with date. cm left message for brother karmen, requested call back. list hh provided yesterday after team, fariha not had hh in past, ok to send referral to [facility]. Cm visited with sister damian, agrees with dcp, no concerns voiced. will cont following as needed for dc needs.
[2021-05-10 19:30] VITALS: BP 114/39
--- NOTE | 2021-05-10 19:54 | NUR ---
NIGHT NURSE CALLED GARAGE DOOR OPENER INSTALLER JAVA WEB ARCHITECT ABOUT ISSUES WITH RESTLESS LEGS WHEN HE FALLS ASLEEP HE STATES HIS LEGS JUMP.
--- NOTE | 2021-05-11 03:00 | NUR ---
assumed care approx 1900 evening 05/10. pt alert and oriented x4, appropriate and cooperative. tejeda to dd with yellow urine to bag. pt took hs meds with water tolerating well. pt appears to be sleeping well with cpap on. bed alarm on and call light in reach. will continue to monitor.
[2021-05-11 08:14] VITALS: BP 128/53
--- NOTE | 2021-05-11 09:32 | NUR ---
Cm notified that he is a BPCI, cm provided update to [facility] sn[facility].
--- NOTE | 2021-05-11 10:00 | NUR ---
PT WAS WORKING WITH THERAPY THIS AM. PT SITTING BACK IN RECLINER. PT STATED HE SLEPT WELL LAST NIGHT AT LEAST 6 HRS. PT DENIES BM SINCE 05/10. PT HAS AZUL BAG ON RT LEG. PT LUNGS CLEAR. PT USES CPAP AT HS. PT HAS BOWEL SOUNDS. PT TOOK MEDS WITH WATER WITHOUT ANY ISSUES. PT HAD LACTULOSE THIS AM.
--- NOTE | 2021-05-11 12:31 | NUR ---
PT HAVING BM'S AND REFUSING TO TAKE ANY MORE LAXATIVES AT THIS TIME.
[2021-05-11 19:08] VITALS: BP 116/35
[2021-05-11 20:15] VITALS: BP 120/45
--- NOTE | 2021-05-12 03:31 | NUR ---
ASSUMED CARE AT 1900 OF 05/11. PATIENT IS A&OX4. DENIES PAIN. BS ARE PRESENT AND HYPOACTIVE, MIRALAX AND LACTULOSE ADMNISTERED AT HS. PATIENT HAS HAD TWO BMS ON THIS SHIFT SO FAR, PATIENT IS STAND BY ASSIST W/ BG AND WALKER FOR TRANSFERS AND AMBUALTION. +3 PEDAL EDEMA, AND +2 BLE EDEMA NOTED, WADE HOSES REMOVED AT HS. BRADYCARDIA NOTED, PATIENT DENIES SOB, DIZZINESS OR CHEST PAIN. NO CONCERNS AT THIS TIME, WILL CONTINUE TO MONITOR.
[2021-05-12 07:59] VITALS: BP 115/42
--- NOTE | 2021-05-12 09:15 | NUR ---
ASSUMED CARE OF PT AT 0715. PT IS A&OX4. IS ON ROOM AIR, BUT USES CPAP AT HS. DENIES PAIN. IS STABLE. IS UP WITH STANDBY ASSIST, JO ANN, WALKER. FALL PRECAUTIONS & HOURLY ROUNDING CONTINUED THIS SHIFT. LABS & VITALS REVIEWED. PT EDEMA NOTED TO BILAT LE; ELEVATED IN RECLINER. PT CONTINUES ON LASIX. AZUL'S IN PLACE. CALL LIGHT WITHIN REACH. WILL CONTINUE TO MONITOR.
--- NOTE | 2021-05-12 13:26 | NUR ---
Cont dcp as needed. BPCI, fww and anna snider. dc 05/17
--- NOTE | 2021-05-12 13:40 | NUR ---
wound care f/u; The wound is healed. No need to follow this patient. will d/c from wound care. continue zguard for prevention. discussed with JESUS MANUEL.
--- NOTE | 2021-05-12 15:53 | HC ---
[facility] [place] [address] CONSULTATION Name: FRANCISCO MORALES Room #: 504-1 ADM IN M.R.#: [id number] Admission: 05/05/21 Attend Phys: Jamey Shultz MD Discharge: Date of : 42 Report #: [id number] THIS REPORT FOR: cc: Nicolas Brooks MD, Eric K. MD Deutch, Neal B. PhD ~ DOC #: [id number] Burton Pratt, PhD DATE OF SERVICE: 05/07/2021 NEUROBEHAVIORAL STATUS EXAM ATTENDING PHYSICIAN: Jamey Shultz MD GINSENG FARMER: Burton Pratt, Ph.D. CLINICAL PRESENTATION: The patient is a 80-year-old male admitted to the [facility] for a comprehensive inpatient rehabilitation program. He is reported to have initially been admitted to the hospital on 05/01/2021 with bradycardia and hypotension. The patient had a syncopal event in the home. Reportedly, blood pressure was very low, which has resolved. The patient was noted to have shock, hypovolemic, and hypokalemia. He was treated for acute hypoxic respiratory failure and acute renal failure. Recent lower extremity cellulitis is reported along with involvement of infectious disease. PAST MEDICAL HISTORY: Reportedly included coronary artery disease, status post aortic valve replacement and bioprosthetic in 2014, AAA, status post endograft, hypertension, hyperlipidemia, chronic venous insufficiency and a history of COPD. His assessment on admission to the rehabilitation unit was medical complexity with generalized debilitation, recent syncopal episode; hypovolemic shock; recent acute hypoxic respiratory failure; critical hyperkalemia that has resolved; acute renal insufficiency; possible acute tubular necrosis, resolved; recent lower extremity cellulitis, improved; aortic stenosis, status post bioprosthetic aortic valve replacement; hypertension; hyperlipidemia; morbid obesity with a BMI of 44; chronic obstructive pulmonary disease, using a CPAP; venous insufficiency and a history of vaping. A complete description of his medical condition and history along with medications can be found in his medical record. Neuropsychological consultation was requested to provide assistance in the assessment of cognitive and emotional status and to provide recommendations and services. Prior to this most recent admission, he was living independently in the home with his brother. The patient never and has no children. 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 He is a high school graduate. The patient has 1 brother and 1 sister. He reports daily use of alcohol approximately 2-3 beers per day. TECHNIQUES UTILIZED: Clinical interview, review of medical records, staff consultation and behavioral observation, mini mental status exam 2 standard version and clock drawing. EXAMINATION FINDINGS: The patient was alert and cooperative with the assessment. He accurately described events surrounding his admission. He does have a brief period of uncertainty about the events leading directly to his hospitalization. He reports having had a fall and unable to stand. He decided to lie on the floor until his brother awakened and subsequently EMS was called. He does not present with an aphasia. There was no report of auditory or visual hallucinations. His thoughts are logical and goal oriented. The patient indicates having difficulty with sleep and finds it difficult to get comfortable. He has been sleeping in a recliner. Appetite is reduced, although the patient is morbidly obese. He does not report anxiety or depression. His performance on the MMSE 2 brief version is within normal limits with a raw score of 14/16. He is 3/3 for initial registration, 4/5 for orientation to time and place and 1/3 for immediate recall of 3 items after a brief time delay and distraction. Performance on the MMSE 2 standard version is within normal limits with a raw score of 27/30. He was 4/5 for serial sevens, 2/2 for naming, 1/1 for repetition, 3/3 for auditory comprehension. He could read and follow a single command, write a sentence and copy a simple geometric design. Clock drawing is within normal limits. The patient presents with likely a mild degree of difficulty with memory. Executive functioning deficits associated with planning and problem solving are suggested by behavior at the time of his fall. 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 Consider increased assessment of driving capacity following discharge. Outpatient neuropsychological evaluation further clarification of cognitive functioning. Alcohol use should be reduced or discontinued. He may require assistance in the management of medication and finances, to ensure competence for independent management. Family education will be of benefit to assist as needed in [facility] [address] [place] [address] CONSULTATION Name: FRANCISCO MORALES Room #: 504-1 [facility] IN M.R.#: [id number] Admission: 05/05/21 Attend Phys: Jamey Shultz MD Discharge: Date of : 42 Report #: [id number] managment of health related concerns. Consider a dietary consult to assist in the development of a diet to improve nutritional management. Thank you very much for allowing me to provide the consultation on this patient. Burton Pratt, PhD DOUGLAS/AYALA <ELECTRONICALLY SIGNED> By: Burton Pratt, PhD 05/12/21 1553 1544 01 Burton Pratt, PhD /yessi
[2021-05-12 20:32] VITALS: BP 103/44
--- NOTE | 2021-05-13 01:37 | NUR ---
ASSUMED CARE AT 1900 OF 05/12. PATIENT IS A&OX4. REPORTED MILD PAIN IN BLE. PRN TYLENOL ADMNISTERED PER PATIENT REQUEST. +2 PEDAL EDEMA PRESENT BILATERALLY, +1 BLE EDEMA ALSO NOTED. PATIENT REPORTS HAVING A BETTER DAY, LESS BM'S THROUGHTOUT THE DAY, HE GENERALLY FEELS BETTER IN HIS ABILITY TO PARTICIPATE IN THERAPY DURING THE DAY. BRADYCARDIA NOTED, PATIENT DENIES DIZZINESS, FEELING LIKE FAINTING, SOB OR CHEST PAIN. CHIEF HYDROELECTRIC STATION OPERATOR PROVIDER NOTIFIED OF VITAL SIGNS, AND SUGGESTED TO CONTINUE MONITORING PATIENT HE REMAINS ASYMPTOMATIC. AZUL IN PLACE AND DRAINING CLEAR YELLOW URINE. STAND BY ASSIST W/ GB AND WALKER FOR TRANSFERS AND AMBULATION. CURRENTLY HAS CPAP ON AND SLEEPING. WILL CONTINUE TO MONITOR.
[2021-05-13 08:00] VITALS: BP 115/41
--- NOTE | 2021-05-13 11:22 | NUR ---
ASSUMED C/O PT. AT 0700. PT. A&OX4. PT UP TO BATHROOM WITH SBA STEADY GAIT NOTED. TOLERATING CARB CONTROL DIET. CALL LIGHT APPROPRIATE. WILLINGLY WORKS WITH THERAPY. WOUND CARE DONE ORDERED. WILL CONTINUE TO MONITOR.
[2021-05-13 18:54] VITALS: BP 104/57
--- NOTE | 2021-05-14 03:17 | NUR ---
ASSUMED CARE AT 1900 OF 05/13. PATIENT IS A&OX4. NO BRADYCARDIA NOTED WHEN VS WERE COLLECTED. PATIENT CONTINUES TO DENY DIZZINESS, LIGHTHEADNESS, SOB OR CHEST PAIN. STAND BY ASSIST WITH TRANSFERS AND AMBULATION USING GB AND WALKER. AZUL IN PLACE, PATENT AND DRAINGING CLEAR YELLOW URINE. PATIENT REPORTED ACHING PAIN IN RIGHT FOOT, PRN TYLENOL ADMNISTERED PER PATIENT REQUEST. CPAP ON OVERNIGHT, CURRENTLY SLEEPING IN BED, BED ALARM ON AND CALL LIGHT W/IN REACH. NO CONCERNS AT THIS TIME, WILL CONTINUE TO MONITOR.
[2021-05-14 07:15] VITALS: BP 119/40
--- NOTE | 2021-05-14 11:37 | EKG ---
[place] [address] [facility] [place] [address] ELECTROCARDIOGRAM REPORT Name: FRANCISCO MORALES Room #: 504-1 ADM IN M.R.#: [id number] Admission: 05/05/21 Attend Phys: Jamey Shultz MD Discharge: Date of : 42 Report #: [id number] [facility] Test Date: 2021-05-13 Test Time: 20:04:42 Pat Name: FRANCISCO MORALES Department: Room: [facility] Gender: M Slat Twister: ELLEN : 1940 Requested By: Buddy Gan Order Number: [id number] MD: Buddy Gan Measurements Intervals [place] Rate: 70 P: 0 UT: 294 QRS: -68 QRSD: 148 T: 54 QT: 503 QTc: 543 Interpretive Statements Sinus rhythm Prolonged UT interval RBBB and LAFB Artifact in lead(s) V2 Compared to ECG 05/01/2021 06:25:01 No significant changes Electronically Signed On 05-14-2021 11:37:45 CDT by Buddy Gan [email or web address] <ELECTRONICALLY SIGNED> By: Buddy Gan MD 05/14/21 1137 03 03 Buddy Gan MD /RASHMI
--- NOTE | 2021-05-14 11:41 | EKG ---
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
--- NOTE | 2021-05-14 15:10 | NUR ---
ASSESSMENT CHARTED. PT ALERT AND ORIENTED. HAD EKG THIS AM. SEE DR. TAPIA NOTES. NPO AFTER MIDNIGHT PER DR. LARA. POSSIBLE PACEMAKER PLACEMENT. NO CONCERNS AT THIS TIME.
[2021-05-14 19:30] VITALS: BP 107/44
--- NOTE | 2021-05-15 03:14 | NUR ---
PT TRANSFERRING FROM CHAIR TO BED WITH ASSIST X1 AND IS TOLERATING FAIR. DENIES PAIN. RESTING COMFORTABLY. NO NEEDS VOICED. CALL LIGHT WITHIN REACH. FREQUENT OBSERVATION.
--- NOTE | 2021-05-15 07:30 | NUR ---
PT NPO AT THIS TIME. PT GOING TO CCU TODAY FOR A CARDIAC PROCEDURE. PT WORKING WITH THERAPY THIS AM AND GETTING A SHOWER. PT HAD DRY COUGH AND CRACKLES HEARD TO RLL AND LLL, PT HAS AZUL TO DD WITH CLEAR YELLOW URINE. PT WAS SOA AFTER ACTIVITY. PT HAS WADE HOSE ON WALKER PT HAS PEDAL EDEMA +2. PT PULSE 48 AT THIS TIME.
--- NOTE | 2021-05-15 07:40 | NUR ---
CARDIOLOGY HERE TO SEE PT AND WRITTING ORDERS FOR PT TO TRANSFER TO CCU.
[2021-05-15 08:06] VITALS: BP 167/76
[2021-05-15] MEDS ORDERED: FLOMAX0.4 MG PO (08:40)
[2021-05-15] MEDS ORDERED: LASIX 40 MG TAB40 M1 PO (08:40)
[2021-05-15] MEDS ORDERED: ALBUTEROL2.5 MG/0.5 INH (08:40)
--- NOTE | 2021-05-15 12:02 | PLAN ---
[facility] [place] [address] [place] [address] REHAB UNIT PLAN OF CARE Name: FRANCISCO MORALES Room #: 504-1 ADM IN M.R.#: [id number] Admission: 05/05/21 Attend Phys: Jamey Shultz MD Discharge: Date of : 42 Report #: [id number] THIS REPORT FOR: cc: Nicolas Brooks MD, Eric K. MD Smithson,Jamey Garcia MD ~ DOC #: [id number] Jamey Shultz MD PROGRESS NOTE AND OVERALL PLAN OF CARE HISTORY OF PRESENT ILLNESS: The patient was seen today in followup. Temperature 98.1, pulse 83, respirations 18, blood pressure 113/54. He is in no distress. He was undergoing a breathing treatment during my visit. Pleasant. No complaints of pain. Notes that his left ankle is doing better. The left ankle was examined. No changes were noted. He has some bruised areas that are gradually decreasing. Functionally, he is transferring with min assist and is ambulating 75 feet contact guard with a front-wheeled walker. In occupational therapy, lower body dressing is max assist, upper body dressing is min assist. In speech therapy, he has mild cognitive deficits with qktp-[id number] memory deficits. ASSESSMENT: 1. Medical complexity with generalized debilitation. 2. Recent syncopal episode. 3. Hypovolemic shock. 4. Recent acute hypoxic respiratory failure. 5. Critical hyperkalemia that has resolved. 6. Acute renal insufficiency with possible acute tubular necrosis, resolved. 7. Recent lower extremity cellulitis, improved. 8. Aortic stenosis, status post bioprosthetic aortic valve replacement. 9. Hypertension. 10. Hyperlipidemia. 11. Morbid obesity, BMI of 44. 12. Chronic obstructive pulmonary disease. 13. Venous insufficiency. 14. History of vaping. PLAN: The overall plan of care is based on the pre-admit screen and information garnered from therapy assessments. 1. Estimated length of stay is probably 10 days. 2. Medical prognosis is reasonably good. 3. Anticipated interventions include the interdisciplinary acute inpatient rehabilitation program. 4. Anticipated functional outcomes would be for the patient to become modified independent with transfers, mobility and ADLs so he can return back to the home [facility] [address] [place] [address] REHAB UNIT PLAN OF CARE Name: FRANCISCO MORALES Room #: 504-1 ADM IN ..#: [id number] Admission: 05/05/21 Attend Phys: Jamey Shultz MD Discharge: Date of : 42 Report #: [id number] setting. 5. Discharge destination is back to the home setting where he lives with his brother. 6. Expected therapy by discipline includes PT, OT and speech 1 hour per day each 5 days a week throughout the duration of the acute inpatient rehabilitation stay. The patient's prognosis for significant practical improvement within a reasonable period of time appears good. Given the patient's complex medical condition and risk of further medical complication, rehabilitation services could not be safely provided at a lower level of care such as a residential facility. MD KINSEY LaraS/CARON <ELECTRONICALLY SIGNED> By: Jamey Shultz MD 05/15/21 1202 0852 0938 Jamey Shultz MD /nt
--- NOTE | 2021-05-15 12:20 | EKG ---
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 : 1940 Requested By: Albina Esparza Order Number: [id number] MD: Devan Salazar Measurements Intervals [place] Rate: 41 P: -21 NJ: 306 QRS: -61 QRSD: 147 T: 11 QT: 598 QTc: 494 Interpretive Statements Sinus bradycardia Prolonged [place] interval IVCD, consider atypical RBBB Inferior infarct, old Lateral leads are also involved Artifact in lead(s) I,II,III,aVL,aVF,V1,V2,V3,V4 Compared to ECG 05/14/2021 08:12:05 Myocardial infarct finding now present Sinus rhythm no longer present 2:1 AV block no longer present Left anterior fascicular block no longer present Electronically Signed On 05-15-2021 12:19:58 CDT by Devan Salazar [email or web address] <ELECTRONICALLY SIGNED> By: Devan Salazar MD, [facility] 05/15/219 1 1 Devan Salazar MD, [facility] /EPI
--- NOTE | 2021-05-15 12:35 | NUR ---
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 PT SIGNED CONSENT FOR PACEMAKER AND ALSO DISCHARGE INSTRUCTIONS. PT STATED HE WAS READY DUE TO NOT BEING ABLE TO EAT OR DRINK THIS AM.
== END 2021-05-15 12:30 | disposition short-term general hospital (02) | DRG 947 ==
PROVIDERS: Nurse Practitioner; ADMIT Physical Medicine & Rehabilitation; ATTEND Physical Medicine & Rehabilitation
PROC: 5A09557 Assistance with Respiratory Ventilation, Greater than 96 Consecutive Hours, Continuous Positive Airway Pressure (ICD-10-PCS; principal; 2021-05-10)
DX: R53.81 Other malaise (principal); R55 Syncope and collapse; R57.1 Hypovolemic shock; J96.01 Acute respiratory failure with hypoxia; N17.9 Acute kidney failure, unspecified; Z68.43 Body mass index [BMI] 50.0-59.9, adult; L03.115 Cellulitis of right lower limb; I45.3 Trifascicular block; I25.10 Atherosclerotic heart disease of native coronary artery without angina pectoris; Z95.2 Presence of prosthetic heart valve; E78.5 Hyperlipidemia, unspecified; I87.2 Venous insufficiency (chronic) (peripheral); J44.9 Chronic obstructive pulmonary disease, unspecified; E66.01 Morbid (severe) obesity due to excess calories; G31.84 Mild cognitive impairment of uncertain or unknown etiology; Z88.1 Allergy status to other antibiotic agents; E87.5 Hyperkalemia; I73.9 Peripheral vascular disease, unspecified; U07.0 Vaping-related disorder; E86.0 Dehydration; I95.9 Hypotension, unspecified; D63.8 Anemia in other chronic diseases classified elsewhere; K59.00 Constipation, unspecified; Z66 Do not resuscitate; I12.9 Hypertensive chronic kidney disease with stage 1 through stage 4 chronic kidney disease, or unspecified chronic kidney disease; N18.9 Chronic kidney disease, unspecified; I44.1 Atrioventricular block, second degree
CPT/HCPCS: 10112; 62110; 62900

== ENCOUNTER 2021-05-15 09:25 | Observation (INO) | payer OTHER, MEDICARE ==
[~2021-05-15] VITALS: Ht 175.3 cm; Wt 137.4 kg
[~2021-05-15 09:25] MED LIST changes: +ALBUTEROL2.5 MG/0.5 INH; +FLOMAX0.4 MG PO; +LASIX 40 MG TAB40 M1 PO
[2021-05-15 13:29] LABS: ABSOLUTE NEUTROPHILS 8.8 thou/uL (1.4-8.2); BASOPHILS 0.7 % (0.0-2.0); EOSINOPHILS 0.6 % (0.0-3.0); HEMATOCRIT 27.8 % (42.0-52.0); HEMOGLOBIN 9.2 gm/dL (14.0-18.0); LYMPHOCYTES 10.2 % (24.0-44.0); MCH 30.5 pg (26.0-34.0); MCV 92.5 fL (80.0-100.0); MONOCYTES 8.7 % (1.0-8.0); PLATELET COUNT 424 thou/uL (150-400); POLYS 79.8 % (36.0-66.0); RDW 13.4 % (10.5-14.5)
[2021-05-15 13:45] LABS: CALCIUM 9.7 mg/dL (8.5-10.1); INR 1.13; POTASSIUM 3.8 mmol/L (3.5-5.1); PROTIME 12.2 Seconds (10.5-12.1)
[2021-05-15 13:50] LABS: ALBUMIN 2.8 g/dL (3.4-5.0); TOTAL BILIRUBIN 0.6 mg/dL (0.2-1.0); TOTAL PROTEIN 6.6 g/dL (6.4-8.2)
--- NOTE | 2021-05-15 17:32 | NUR ---
PATIENT ADMITTED TO CCU FROM 5N POST PACEMAKER PLACEMENT. LEFT ARM IMMOBILIZER IN PLACE. PATIENT ON BEDREST OVER NIGHT. AZUL IN PLACE, AZUL PRESENT FROM 5N- PLACED FOR RENTENTION. PATIENT ALERT/ORIENTED. DENIES ANY PAIN OR DISCOMFORT. ADMISSION ASSESSMENTS COMPLETE. LEFT CHEST INICISON SITE OPEN TO AIR. VPACED ON THE MONITOR.
[2021-05-15 19:30] VITALS: BP 130/53
[2021-05-15 20:00] VITALS: BP 118/62
[2021-05-15 20:30] VITALS: BP 118/60
[2021-05-15 21:00] VITALS: BP 133/61
[2021-05-15 23:46] VITALS: BP 146/68
[2021-05-16 03:20] VITALS: BP 129/71
--- NOTE | 2021-05-16 03:59 | NUR ---
PT TOLERATING BEDREST AND IMMOBILIZER POST PACEMAKER PLACEMENT, LEFT CHEST INCISION REMAINS CDI WITH OUT C/O PAIN, VSS, AZUL WITH YELLOW DRAINAGE, WILL CON'T TO MONITOR PER PPOC.
--- NOTE | 2021-05-16 09:02 | NUR ---
PT OFF UNIT TO XRY.
--- NOTE | 2021-05-16 09:17 | NUR ---
PT RETURN FROM CXRY
[2021-05-16 09:19] VITALS: BP 121/50
[2021-05-16 12:48] VITALS: BP 101/49
[2021-05-16 16:28] VITALS: BP 124/79
--- NOTE | 2021-05-16 17:12 | NUR ---
spoke with patient he admitted from acute 5N rehab with tenative plan for dc home in am with HH care. PT reports patient with poor endurance. cannot uses walker with binder. Patient needs to work on stairs. Plan for PT/OT to see in am to determine dc planning. Patient resides in home with brother. Supportive family. 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 He has 2 steps to enter home and 7 steps inside. Patient reports he feels he is not progressing as well as he expected. Discussed possible dc home with HH care or may need to return to 5N. Patient agreeable to what phys determine best for patient at dc.
[2021-05-16 19:40] VITALS: BP 135/55
[2021-05-16 22:42] VITALS: BP 135/53
--- NOTE | 2021-05-17 03:45 | NUR ---
PATIENT IS A DNR. CONFIRMED WITH PATIENT. DNR BRACELET INPLACE. SPOKE WITH DR. HARVEY WHO STATED THE DAY DOCTORS WILL TAKE CARE OF THAT. ASSESSMENTS CHARTED, MEDS CHARTED GIVEN. PATIENT SITTING UP IN RECLINER WHEN WE MET. WENT TO RESTROOM WITH GAITBELT AND WALKER, HAD BOWEL MOVEMENT, THEN BACK TO THE RECLINER UNTIL BEDTIME. PATIENT IN LEFT ARM IMMOBILIZER POST PACEMAKER PLACEMENT. AZUL IN PLACE FOR RETENTION. PATIENT WORKING WITH PT/OT AND IS PLANNING ON RETURNING TO REHAB UPSTAIRS WHEN RELEASED. FALL PRECAUTIONS IN PLACE DURING SHIFT.
[2021-05-17 04:41] VITALS: BP 99/36
[2021-05-17 08:10] VITALS: BP 98/48
[2021-05-17 10:58] VITALS: BP 98/48
[2021-05-17 11:07] VITALS: BP 118/71
--- NOTE | 2021-05-17 14:36 | NUR ---
PT ABLE TO VOID ON HIS OWN. WILL DISCONTINUE IV AND TELE AND DISCHARGE TO HOME.
--- NOTE | 2021-05-17 15:12 | NUR ---
patient evaled with therapy and 5N with plan to dc home with HH care. Henrry ty met with patient. She rec orders. Obtained walker via [employer]. no further needs.
--- NOTE | 2021-05-31 15:12 | P ---
[facility] [place] [address] PROCEDURE REPORT Name: FRANCISCO MORALES Room #: [facility] Danie Cabral#: [id number] Admission: 05/15/21 Attend Phys: Buddy Gan MD Discharge: 05/17/21 Date of : 42 Report #: [id number] THIS REPORT FOR: cc: Nicolas Brooks MD, Eric K. MD Couchonnal, Luis F. MD ~ DOC #: [id number] Buddy Gan MD PROCEDURE: Pacemaker implantation. PREOPERATIVE DIAGNOSES: 1. Syncope. 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 HISTORY: The patient is a 80-year-old male with history of coronary artery disease, peripheral vascular disease, bioprosthetic AVR, who was admitted with syncopal episode in the setting of hyperkalemia. This is improved; however, once in rehab, he was noted to be bradycardic with evidence of 2:1 AV block and high-degree AV block. Based on these findings including a history of trifascicular block, I recommended a dual chamber pacemaker implantation. ANESTHESIA: The patient underwent MAC anesthesia with no anesthesia related complications. DESCRIPTION OF PROCEDURE: The patient underwent informed consent. We discussed the details of the procedure including the risks, which include but not limited to bleeding, infection, vascular damage, cardiac perforation, pneumothorax. He understood these risks and is willing to proceed. As such, the patient was brought to the EP laboratory in a fasting and unsedated state, prepped and draped in a standard fashion. He received IV antibiotics prior to initiation of the procedure. Next, I injected lidocaine at the incision site and an incision was made and a pocket was created over the prepectoral fascia and access was obtained twice to left axillary vein using the extrathoracic approach with sheaths positioned using the modified Seldinger technique. Next, under fluoroscopy, lead was positioned into the right mid ventricular septum and the right atrial appendage, both with adequate pacing and sensing thresholds. Interesting once we started pacing the patient, he no longer had any underlying rhythm. Therefore, we had quickly made him pacer dependent. The leads were sutured to the prepectoral fascia using Ethibond suture connected to the leads. Tug test performed. Device was tested and found to be functioning normally. The pocket was irrigated with vancomycin and then the pocket was closed in two layers using 2-0 for the deep layer, 3-0 for the middle layer and surgical glue for the outer skin layer. The patient awoke neurologically and hemodynamically intact. No complications. No significant bleeding. The implanted pacemaker [address] [address] PROCEDURE REPORT Name: FRANCISCO MORALES Room #: 210-P AMANDA Cabral#: [id number] Admission: 05/15/21 Attend Phys: Buddy Gan MD Discharge: 05/17/21 Date of : 42 Report #: [id number] was a Medtronic model #W3DR01, serial #[id number]. The atrial lead was 5076, 52 cm, serial #[id number]. Ventricular lead was 5076, serial #[id number]. Atrial lead demonstrated a P-wave of 1.2 millivolts, pacing impedance of 399 ohms and a pacing threshold of 0.75 volts at 0.4 milliseconds. The RV lead demonstrated R-waves of 4.75 volts, pacing impedance of 475 ohms and a pacing threshold of 0.25 volts at 0.4 milliseconds. The device was programmed to the DDDR 60-130 mode. CONCLUSIONS: 1. Successful dual chamber pacemaker implantation. 2. Satisfactory atrial and ventricular pacing and sensing thresholds. Buddy Gan MD [facility] <ELECTRONICALLY SIGNED> By: Buddy Gan MD 05/31/21 1512 1145 2145 Buddy Gan MD /nt
== END 2021-05-17 15:44 | disposition home or self-care (01) ==
LOC: 2N 09:25
PROVIDERS: ADMIT Internal Medicine Cardiovascular Disease; ATTEND Internal Medicine Cardiovascular Disease
DX: R55 Syncope and collapse (principal); I44.2 Atrioventricular block, complete; I45.3 Trifascicular block; I10 Essential (primary) hypertension; E78.5 Hyperlipidemia, unspecified; I65.29 Occlusion and stenosis of unspecified carotid artery; I71.4 Abdominal aortic aneurysm, without rupture; R53.81 Other malaise; R33.9 Retention of urine, unspecified; I87.2 Venous insufficiency (chronic) (peripheral); I35.0 Nonrheumatic aortic (valve) stenosis; Z79.899 Other long term (current) drug therapy
CPT/HCPCS: 70005

== ENCOUNTER → 2021-06-01 | Outpatient (CLI) | payer OTHER, MEDICARE | LOC: HYPER 08:22 | PROVIDERS: ATTEND Emergency Medicine | DX: S51.812A Laceration without foreign body of left forearm, initial encounter (principal); I71.4 Abdominal aortic aneurysm, without rupture; I10 Essential (primary) hypertension; E78.00 Pure hypercholesterolemia, unspecified; G47.33 Obstructive sleep apnea (adult) (pediatric); J44.9 Chronic obstructive pulmonary disease, unspecified; M19.90 Unspecified osteoarthritis, unspecified site; F17.200 Nicotine dependence, unspecified, uncomplicated; Z95.0 Presence of cardiac pacemaker; Z95.4 Presence of other heart-valve replacement; Z95.1 Presence of aortocoronary bypass graft; Z98.49 Cataract extraction status, unspecified eye; Z79.82 Long term (current) use of aspirin; W19.XXXA Unspecified fall, initial encounter; Y93.89 Activity, other specified; Y92.89 Other specified places as the place of occurrence of the external cause; Y99.8 Other external cause status ==

== ENCOUNTER → 2021-08-15 | Outpatient (CLI) | payer OTHER, MEDICARE | LOC: SJCVC 14:09 | PROVIDERS: ATTEND Internal Medicine Cardiovascular Disease | DX: I48.0 Paroxysmal atrial fibrillation (principal); I44.2 Atrioventricular block, complete; E78.00 Pure hypercholesterolemia, unspecified; Z95.0 Presence of cardiac pacemaker; Z88.8 Allergy status to other drugs, medicaments and biological substances; Z79.82 Long term (current) use of aspirin; Z79.899 Other long term (current) drug therapy; Z72.89 Other problems related to lifestyle; Z87.891 Personal history of nicotine dependence ==

== ENCOUNTER → 2021-08-21 | Outpatient (CLI) | payer OTHER, MEDICARE | LOC: SJCVCIMAG 08:18 | PROVIDERS: ATTEND Internal Medicine Cardiovascular Disease | DX: R94.31 Abnormal electrocardiogram [ECG] [EKG] (principal); I71.4 Abdominal aortic aneurysm, without rupture; I25.10 Atherosclerotic heart disease of native coronary artery without angina pectoris; E78.00 Pure hypercholesterolemia, unspecified; I35.0 Nonrheumatic aortic (valve) stenosis; I48.0 Paroxysmal atrial fibrillation; I10 Essential (primary) hypertension; I44.30 Unspecified atrioventricular block; Z95.3 Presence of xenogenic heart valve; Z79.899 Other long term (current) drug therapy; Z88.1 Allergy status to other antibiotic agents; Z72.89 Other problems related to lifestyle; Z87.891 Personal history of nicotine dependence ==

== ENCOUNTER → 2021-10-13 | Outpatient (CLI) | payer OTHER, MEDICARE ==
[2021-10-13 12:05] LABS: CREATININE 0.9 mg/dL (0.7-1.3)
== END ==
LOC: CAT 10:47 → LAB 10:47 → CAT 13:41
PROVIDERS: ATTEND Internal Medicine Cardiovascular Disease
DX: I71.4 Abdominal aortic aneurysm, without rupture (principal); I25.10 Atherosclerotic heart disease of native coronary artery without angina pectoris; N28.89 Other specified disorders of kidney and ureter

== ENCOUNTER 2021-12-15 09:48 | Emergency (ER) | payer OTHER, MEDICARE ==
[~2021-12-15] VITALS: Ht 175.3 cm; Wt 136.1 kg
[2021-12-15 10:29] LABS: URINE BILIRUBIN NEGATIVE (Negative); URINE BLOOD 2+ (Negative); URINE GLUCOSE-RANDOM* NEGATIVE (Negative); URINE KETONES NEGATIVE (Negative); URINE LEUKOCYTES-REFLEX NEGATIVE (Negative); URINE PROTEIN (DIPSTICK) 2+ (Negative); URINE UROBILINOGEN 0.2 E.U./dl (0.2-1.0)
[2021-12-15 10:30] LABS: URINE CLARITY TURBID; URINE COLOR RED; URINE NITRITE-REFLEX POSITIVE (Negative)
[2021-12-15 10:32] LABS: BACTERIA-REFLEX None Seen /HPF (None Seen); CASTS None Seen /LPF (None Seen); CRYSTALS None Seen /LPF (None Seen); SQUAMOUS 0-3 Few /LPF (0-3); URINE RBC >20 Many /HPF (NONE SEEN); URINE WBC-REFLEX 0-5 Rare /HPF (0-5)
[2021-12-15 11:03] LABS: ABSOLUTE NEUTROPHILS 7.6 thou/uL (1.4-8.2); BASOPHILS 0.6 % (0.0-2.0); EOSINOPHILS 0.6 % (0.0-3.0); HEMATOCRIT 46.1 % (42.0-52.0); HEMOGLOBIN 14.9 gm/dL (14.0-18.0); LYMPHOCYTES 9.8 % (24.0-44.0); MCHC 32.2 g/dL (28.0-37.0); MCV 93.1 fL (80.0-100.0); MONOCYTES 8.2 % (1.0-8.0); PLATELET COUNT 240 thou/uL (150-400); POLYS 80.8 % (36.0-66.0); RBC 4.96 mil/uL (4.50-6.00); RDW 14.9 % (10.5-14.5); WBC 9.4 thou/uL (4.0-11.0)
[2021-12-15 11:14] LABS: CALCIUM 9.3 mg/dL (8.5-10.1); POTASSIUM 3.8 mmol/L (3.5-5.1)
[2021-12-15 11:16] LABS: TOTAL BILIRUBIN 0.7 mg/dL (0.2-1.0); TOTAL PROTEIN 7.8 g/dL (6.4-8.2)
[2021-12-15] MEDS ORDERED: CEPHALEXIN500 MG PO (11:37)
[2021-12-15 11:40] VITALS: BP 148/82
--- NOTE | 2021-12-16 10:52 | EKG ---
[place] [address] [facility] [place] [address] ELECTROCARDIOGRAM REPORT Name: FRANCISCO MORALES Room #: DEP GEO Cabral#: [id number] Admission: 12/15/21 Attend Phys: Discharge: 12/15/21 Date of : 42 Report #: [id number] [facility] Test Date: 2021-12-15 Test Time: 10:57:10 Pat Name: FRANCISCO MORALES Department: Room: Gender: M Coding Team Lead: KMMayra : 1940 Requested By: Devonte Jolly Order Number: [id number] MD: Buddy Gan Measurements Intervals [place] Rate: 71 P: 51 MN: 207 QRS: -72 QRSD: 155 T: 83 QT: 438 QTc: 476 Interpretive Statements Atrial-sensed ventricular-paced complexes No further analysis attempted due to paced rhythm Compared to ECG 05/15/2021 08:22:42 Sinus bradycardia no longer present First degree AV block no longer present Myocardial infarct finding no longer present Electronically Signed On 12-16-2021 10:52:14 [employer]OCKUP [employer]KER by Buddy Gan [email or web address] <ELECTRONICALLY SIGNED> By: Buddy Gan MD 12/16/21 105 56 56 Buddy Gan MD /RASHMI
== END 2021-12-15 11:40 | disposition home or self-care (01) ==
LOC: ER 09:48
PROVIDERS: Emergency Medicine
DX: R31.9 Hematuria, unspecified (principal); I10 Essential (primary) hypertension; E78.5 Hyperlipidemia, unspecified; E66.01 Morbid (severe) obesity due to excess calories; I73.9 Peripheral vascular disease, unspecified; J44.9 Chronic obstructive pulmonary disease, unspecified; Z79.51 Long term (current) use of inhaled steroids; Z79.82 Long term (current) use of aspirin; Z79.899 Other long term (current) drug therapy; Z88.8 Allergy status to other drugs, medicaments and biological substances